=== PATIENT | female | born 1995 | race Two or more races ===

== ENCOUNTER 2016-07-23 13:01 | Emergency (ER) | payer BC ==
[2016-07-23 13:24] VITALS: BMI 18.6
[2016-07-23] MEDS ORDERED: ACETAMINOPHEN 500 MG TABLET (FP) PO ONE (15:24)
[2016-07-23] MEDS ORDERED: SODIUM CHLORIDE 1,000 ML IV STA (15:24)
[2016-07-23] MEDS ORDERED: ONDANSETRON 4 MG/2 ML VIAL IVPUSH ONE (15:24)
[2016-07-23] MEDS ORDERED: ONDANSETRON 4 MG/2 ML VIAL ONE (15:25)
[2016-07-23] MEDS ORDERED: ACETAMINOPHEN 325 MG TABLET (FP) ONE (15:25)
[2016-07-23 15:52] LABS: BASOPHIL 1.1 % (0-2.0); EOSINOPHIL 4.1 % (0-4.5); MCH 26.2 pg (25.7-33.7); MCHC 32.6 g/dl (32.0-36.0); MEAN CELL VOLUME 80.4 fl (80-96); MEAN PLT VOLUME 8.1 fl (7.5-11.1); NEUTROPHILS 60.2 % (42.8-82.8); PLATELET COUNT 309 K/MM3 (134-434); RDW 15.9 % (11.6-15.6); WHITE BLOOD COUNT 6.1 K/mm3 (4.0-10.0)
[2016-07-23 16:01] LABS: URINE APPEARANCE CLEAR; URINE BILIRUBIN NEGATIVE (NEGATIVE); URINE BLOOD NEGATIVE (NEGATIVE); URINE COLOR YELLOW; URINE GLUCOSE (UA) NEGATIVE (NEGATIVE); URINE KETONE NEGATIVE (NEGATIVE); URINE LEUK ESTERASE NEGATIVE (NEGATIVE); URINE NITRITE NEGATIVE (NEGATIVE); URINE PROTEIN NEGATIVE (NEGATIVE); URINE UROBILINOGEN NEGATIVE E.U./dl (0.2-1.0)
[2016-07-23 16:06] LABS: ALBUMIN 4.1 g/dl (3.4-5.0); ALK PHOS 70 U/L (45-117); ANION GAP 9 (8-16); BILIRUBIN,TOTAL 1.4 mg/dL (0.2-1.0); CALCIUM 9.2 mg/dL (8.5-10.1); CO2 27 mmol/L (21-32); CREATININE 0.5 mg/dL (0.55-1.02); GLUCOSE,RANDOM 85 mg/dL (74-106); MAGNESIUM 2.4 mg/dL (1.8-2.4); SGOT/AST 12 U/L (15-37); SGPT/ALT 15 U/L (12-78); TOT PROT 7.4 g/dl (6.4-8.2)
--- NOTE | 2016-07-23 16:49 | PDOC ---
History of Present Illness - General Chief Complaint: Pain, Acute Stated Complaint: VOMITING, PAIN/ SIDES, BACK Time Seen by Provider: 07/23/16 14:04 History Source: Patient Exam Limitations: No Limitations - History of Present Illness Travel History: No Initial Comments: 07/23/16 14:48 20-year-old female presents with lower abdominal pain radiating to her lower back for the past week now associated nausea and vomiting. Patient states did a home test a few weeks ago which was negative although her LMP was May 27. Patient denies any urinary complaints, vaginal complaints, discharge, abdominal distention or diarrhea. Timing/Duration: reports: constant Quality: reports: mild, cramping Abdominal Pain Onset Location: reports: suprapubic Pain Radiation: reports: back Activities at Onset: reports: none Aggravating Factors: improves with: None Alleviating Factors: improves with: None Past History - Past Medical History Allergies/Adverse Reactions: Allergies Allergy/AdvReac Type Severity Reaction Status Date / Time No Known Allergies Allergy Verified 07/23/16 13:21 Home Medications: Ambulatory Orders Ferrous Sulfate [Feosol] 1 tab PO BID 02/08/16 Ibuprofen [Motrin -] 600 mg PO QID #28 tablet 02/11/16 Asthma: No Cancer: No Cardiac Disorders: No COPD: No Diabetes: No HTN: No Suicide Attempt (Hx): No Seizures: No Thyroid Disease: No - Surgical History Abdominal Surgery: No Appendectomy: No - Reproductive History LMP Normal: No Is Patient Now?: No Expected Date of Delivery: 05/26/13 (#): 3 Para: 1 Cervical CA: No Dysfunctional Uterine Bleeding: No Ectopic : No Endometrial CA: No Polycystic Ovaries: No Therapeutic (s) & number: No Tubal Ligation: No Spontaneous : 1 - Immunization History Td Vaccination: Yes Immunization Up to Date: Yes - Psycho/Social/Smoking Cessation Hx Anxiety: No Suicidal Ideation: No Smoking Status: No Smoking History: Never smoked Years of Tobacco Use: 0 Have you smoked in the past 12 months: No Number of Cigarettes Smoked Daily: 0 Cigars Per Day: 0 Hx Alcohol Use: No Drug/Substance Use Hx: No Substance Use Type: None Hx Substance Use Treatment: No Patient Lives Alone: No Lives with/in: spouse/SO Review of Systems - Review of Systems Able to Perform ROS?: Yes Constitutional: No: Symptoms Reported HEENTM: No: Symptoms Reported Respiratory: No: Symptoms reported Cardiac (ROS): No: Symptoms Reported ABD/GI: Yes: Abdominal cramping : No: Symptoms Reported (she is ultrasound) Musculoskeletal: No: Symptoms Reported Integumentary: No: Symptoms Reported (I) Neurological: No: Symptoms reported Endocrine: No: Symptoms Reported *Physical Exam - Vital Signs Last Vital Signs Temp Pulse Resp BP Pulse Ox 98.4 F 83 20 103/55 99 07/23/16 13:21 07/23/16 13:21 07/23/16 13:21 07/23/16 13:21 07/23/16 13:21 - Physical Exam General Appearance: Yes: Nourished, Appropriately Dressed. No: Apparent Distress HEENT: negative: Pale Conjunctivae Neck: positive: Normal Thyroid, Supple Respiratory/Chest: positive: Lungs Clear, Normal Breath Sounds. negative: Respiratory Distress, Accessory Muscle Use Cardiovascular: positive: Regular Rhythm, Regular Rate. negative: Murmur Female Pelvic Exam: positive: normal external exam, normal adnexa. negative: cervical os closed, CMT, discharge, vaginal bleeding Gastrointestinal/Abdominal: positive: Soft, Tenderness (mid suprapubic) Musculoskeletal: negative: CVA Tenderness Extremity: positive: Normal Capillary Refill. negative: Pedal Edema Integumentary: positive: Normal Color, Warm, Moist Neurologic: positive: Motor Strength 5/5 (ambulatory) ED Treatment Course - LABORATORY CBC & Chemistry Diagram: 07/23/16 15:32 07/23/16 15:32 - ADDITIONAL ORDERS Additional order review: Laboratory Results 07/23/16 07/23/16 15:32 15:13 Sodium 137 Potassium 4.1 Chloride 101 Carbon Dioxide 27 Anion Gap 9 BUN 9 D Creatinine 0.5 L Creat Clearance w eGFR > 60 Random Glucose 85 Calcium 9.2 Magnesium 2.4 Total Bilirubin 1.4 H D AST 12 L ALT 15 Alkaline Phosphatase 70 Total Protein 7.4 Albumin 4.1 D Urine Color Yellow Urine Appearance Clear Urine pH 5.0 D Ur Specific [place] 1.031 Urine Protein Negative Urine Glucose (UA) Negative Urine Ketones Negative Urine Blood Negative Urine Nitrite Negative Urine Bilirubin Negative Urine Urobilinogen Negative Ur Leukocyte Esterase Negative Urine HCG, Qual Positive 07/23/16 15:32 RBC 4.63 MCV 80.4 MCHC 32.6 RDW 15.9 H MPV 8.1 Neutrophils % 60.2 Lymphocytes % 25.5 D Monocytes % 9.1 Eosinophils % 4.1 D Basophils % 1.1 - RADIOLOGY Radiology Studies Ordered: Category Date Time Status <14WKS US [US] Stat Ultrasound 07/23/16 16:34 Ordered - Medications Given in the ED: ED Medications Discontinued Medications Generic Name Dose Route Start Last Admin Trade Name Vivian PRN Reason Stop Dose Admin Acetaminophen 975 mg 07/23/16 15:24 07/23/16 15:32 Tylenol - PO 07/23/16 15:25 975 mg ONCE ONE Administration Sodium Chloride 1,000 mls @ 1,000 mls/hr 07/23/16 15:24 07/23/16 15:32 Normal Saline - IV 07/23/16 16:23 1,000 mls/hr ASDIR STA Administration Ondansetron HCl 4 mg 07/23/16 15:24 07/23/16 15:33 Zofran Injection IVPUSH 07/23/16 15:25 4 mg ONCE ONE Administration Medical Decision Making - Medical Decision Making 07/23/16 14:51 With complaints of lower abdominal pain and nausea with vomiting since yesterday. Patient states LMP was May 27 but did a home test 2 weeks ago which was negative. Patient had suprapubic pain on exam and concerning for ectopic versus versus UTI. Patient ordered for labs, IV fluids, Zofran, Tylenol and urine with urine . 07/23/16 16:52 Laboratory Tests 07/23/16 07/23/16 07/23/16 15:13 15:32 15:32 WBC 6.1 D Hgb 12.1 D Hct 37.2 D Neutrophils % 60.2 Sodium 137 Potassium 4.1 Chloride 101 Carbon Dioxide 27 Anion Gap 9 BUN 9 D Creatinine 0.5 L Creat Clearance w eGFR > 60 Random Glucose 85 Calcium 9.2 Magnesium 2.4 Total Bilirubin 1.4 H D AST 12 L ALT 15 Urine Ketones Negative Urine Nitrite Negative Urine HCG, Qual Positive Beta hCG added. Patient also ordered for pelvic ultrasound patient states feeling better after receiving the medication. 07/23/16 18:02 Ultrasound shows a single live intrauterine at 6 weeks 1 day with a heart rate of 1 30 bpm. Patient also has a graft of irregular fluid collection adjacent to the gestational sac consistent with subchorionic bleed. Patient will be given copy of ultrasound and told to follow-up with her COMPUTER DESIGNER Dr. Amy Yepez Laboratory Tests 07/23/16 16:35 Beta HCG, Quant 22994.2 *DC/Admit/Observation/Transfer Diagnosis at time of Disposition: Threatened - Discharge Dispostion Disposition: HOME Condition at time of disposition: Good - Referrals Referrals: Dutch Belle MD [Primary Care Provider] - - Patient Instructions Printed Discharge Instructions: DI for Threatened Additional Instructions: Although the ultrasound shows a live at 6 weeks 1 day with a good heart rate. There is also a small bleed next to the gestational sac that needs to be followed up by her COMPUTER DESIGNER. May take Tylenol for discomfort. Return to ED if symptoms worsen
[2016-07-23 18:18] VITALS: BP 107/72; PULSE 84; TEMP 98.2
== END 2016-07-23 18:18 | disposition home or self-care (01) ==
LOC: JER 13:01
PROC: 3E033GC Introduction of Other Therapeutic Substance into Peripheral Vein, Percutaneous Approach (ICD-10-PCS; principal; 2016-07-23)
DX: O20.0 Threatened abortion (principal); Z3A.01 Less than 8 weeks gestation of pregnancy
CPT/HCPCS: 36415; 76801-TC; 80053; 81003; 83735; 84702; 84703; 85025; 87086; 99285-25

== ENCOUNTER 2016-12-31 19:22 | Emergency (ER) | payer BC ==
[2016-12-31 19:31] VITALS: BP 105/59; BMI 18.6
[2016-12-31] MEDS ORDERED: IBUPROFEN 400 MG TABLET (FP) PO ONE (20:18)
--- NOTE | 2016-12-31 20:23 | PDOC ---
History of Present Illness - General Chief Complaint: Cold Symptoms Stated Complaint: COLD SYMPTOMS Time Seen by Provider: 12/31/16 19:42 History Source: Patient - History of Present Illness Timing/Duration: reports: yesterday Associated Symptoms: reports: fever/chills, muscle aches. denies: cough, earache, facial pain, lightheadedness, nasal congestion, nasal drainage, shortness of breath, sore throat, wheezing Past History - Past Medical History Allergies/Adverse Reactions: Allergies Allergy/AdvReac Type Severity Reaction Status Date / Time No Known Allergies Allergy Verified 12/31/16 19:27 Home Medications: Ambulatory Orders Ferrous Sulfate [Feosol] 1 tab PO BID 02/08/16 Ibuprofen [Motrin -] 600 mg PO QID #28 tablet 02/11/16 Cephalexin Monohydrate [Keflex -] 500 mg PO Q6H #20 capsule 08/04/16 Ondansetron [Zofran Odt -] 4 mg SL TID PRN #12 od.tablet 08/04/16 Asthma: No Cancer: No Cardiac Disorders: No COPD: No Diabetes: No HTN: No Suicide Attempt (Hx): No Seizures: No Thyroid Disease: No Other medical history: Pt denies - Surgical History Abdominal Surgery: No Appendectomy: No - Reproductive History Expected Date of Delivery: 05/26/13 (#): 3 Para: 1 Cervical CA: No Dysfunctional Uterine Bleeding: No Ectopic : No Endometrial CA: No Polycystic Ovaries: No Therapeutic (s) & number: No Tubal Ligation: No Spontaneous : 1 - Immunization History Td Vaccination: Yes Immunization Up to Date: Yes - Psycho/Social/Smoking Cessation Hx Anxiety: No Suicidal Ideation: No Smoking Status: No Smoking History: Never smoked Years of Tobacco Use: 0 Have you smoked in the past 12 months: No Number of Cigarettes Smoked Daily: 0 Cigars Per Day: 0 Information on smoking cessation initiated: No Hx Alcohol Use: No Drug/Substance Use Hx: No Substance Use Type: None Hx Substance Use Treatment: No Review of Systems - Review of Systems Constitutional: Yes: Fever, Malaise, Weakness Respiratory: No: Cough, Shortness of Breath Cardiac (ROS): No: Chest Pain ABD/GI: No: Diarrhea, Nausea, Vomiting : No: Dysuria Musculoskeletal: No: Neck Pain Neurological: No: Headache, Dizziness *Physical Exam - Vital Signs Last Vital Signs Temp Pulse Resp BP Pulse Ox 99.0 F 108 H 20 105/59 100 12/31/16 19:27 12/31/16 19:27 12/31/16 19:27 12/31/16 19:27 12/31/16 19:27 - Physical Exam Comments: 12/31/16 20:22 appears ill General Appearance: Yes: Appropriately Dressed HEENT: positive: Normal ENT Inspection, Normal Voice. negative: Scleral Icterus (R), Scleral Icterus (L) Neck: positive: Supple. negative: Lymphadenopathy (R), Lymphadenopathy (L), Rigidity Respiratory/Chest: positive: Lungs Clear, Normal Breath Sounds. negative: Respiratory Distress Cardiovascular: positive: S1, S2, Tachycardia Gastrointestinal/Abdominal: positive: Soft. negative: Tender Integumentary: positive: Dry, Warm Neurologic: positive: Fully Oriented, Alert, Normal Mood/Affect Medical Decision Making - Medical Decision Making 12/31/16 20:20 21-year-old female, denies any past medical history here with sudden onset malaise with body aches, subjective fever and chills since yesterday. Denies headache, earache, sore throat, cough, neck pain, nausea, vomiting, diarrhea or rash. No sick contacts, recent travel or recent bites. Patient appears uncomfortable with low-grade fever and tachycardia in ED with unremarkable exam otherwise. Most likely viral syndrome. Will administer supportive tx in ED and reassess 12/31/16 21:37 Flu neg. Sxs improved w/ meds in ED. Will discharge w/ supportive tx 12/31/16 21:38 12/31/16 22:00 *DC/Admit/Observation/Transfer Diagnosis at time of Disposition: Viral syndrome - Discharge Dispostion Disposition: HOME Condition at time of disposition: Improved - Patient Instructions Printed Discharge Instructions: DI for Viral Syndrome Additional Instructions: Rest, take Motrin or Tylenol for pain and/or fever and maintain adequate hydration - Post Discharge Activity Work/School Note: Back to Work
[2016-12-31 21:42] VITALS: PULSE 98; TEMP 98.4
== END 2016-12-31 21:42 | disposition home or self-care (01) ==
LOC: JERFT 19:22
DX: B34.9 Viral infection, unspecified (principal)
CPT/HCPCS: 84703; 87804; 99281-25

== ENCOUNTER 2017-03-14 10:26 | Emergency (ER) | payer BC ==
[2017-03-14 10:36] VITALS: BP 105/70; PULSE 93; TEMP 99.4; BMI 18.4
[2017-03-14 11:03] LABS: URINE APPEARANCE SLCLOUDY; URINE BILIRUBIN NEGATIVE (NEGATIVE); URINE BLOOD 2+ (NEGATIVE); URINE COLOR YELLOW; URINE GLUCOSE (UA) NEGATIVE (NEGATIVE); URINE KETONE NEGATIVE (NEGATIVE); URINE NITRITE NEGATIVE (NEGATIVE); URINE PROTEIN NEGATIVE (NEGATIVE); URINE UROBILINOGEN NEGATIVE mg/dL (0.2-1.0)
[2017-03-14 11:06] LABS: URINE LEUK ESTERASE 1+ (NEGATIVE)
[2017-03-14 11:07] LABS: URINE MUCUS RARE; URINE RBC 1 /hpf (0-3); URINE WBC 1 /hpf (3-5)
[2017-03-14] MEDS ORDERED: AZITHROMYCIN 1 GM PACKET PO ONE (11:07)
[2017-03-14] MEDS ORDERED: LIDOCAINE HCL 1%, 10 MG/ML (20ML VIAL) ONE (11:11)
[2017-03-14] MEDS ORDERED: AZITHROMYCIN 1 GM PACKET ONE (11:11)
--- NOTE | 2017-03-14 11:16 | PDOC ---
History of Present Illness - General Chief Complaint: Vaginal Sxs Stated Complaint: PAIN Time Seen by Provider: 03/14/17 10:52 History Source: Patient Exam Limitations: No Limitations - History of Present Illness Travel History: No Initial Comments: 03/14/17 11:17 21 yr female with c/o vaginal itch/irritation for 2 weeks. Pt was dx with yeast infection and ghonorrohea 2 weeks ago did not complete the antibitoics , missed 3 doses. Pt states she continue to have irritation. no discharge. Pt has no abd pain no fever or chills is on depo provera. Last HIV test 02/10 was negative. Past History - Past Medical History Allergies/Adverse Reactions: Allergies Allergy/AdvReac Type Severity Reaction Status Date / Time No Known Allergies Allergy Verified 03/14/17 10:32 Home Medications: Ambulatory Orders NK [No Known Home Medication] 03/14/17 Asthma: No Cancer: No Cardiac Disorders: No COPD: No Diabetes: No HTN: No Suicide Attempt (Hx): No Seizures: No Thyroid Disease: No Other medical history: none - Surgical History Abdominal Surgery: No Appendectomy: No - Reproductive History Expected Date of Delivery: 05/26/13 (#): 3 Para: 1 Cervical CA: No Dysfunctional Uterine Bleeding: No Ectopic : No Endometrial CA: No Polycystic Ovaries: No Therapeutic (s) & number: No Tubal Ligation: No Spontaneous : 1 - Immunization History Td Vaccination: Yes Immunization Up to Date: Yes - Psycho/Social/Smoking Cessation Hx Anxiety: No Suicidal Ideation: No Smoking Status: No Smoking History: Never smoked Years of Tobacco Use: 0 Have you smoked in the past 12 months: No Number of Cigarettes Smoked Daily: 0 Cigars Per Day: 0 Information on smoking cessation initiated: No Hx Alcohol Use: No Drug/Substance Use Hx: No Substance Use Type: None Hx Substance Use Treatment: No Abd/GI Specific PMHX - Complaint Specific PMHX Colitis: No Diverticulitis: No Gall Bladder Disease: No GERD: No Hepatitis: No Irritable Bowel Synd (IBS): No Pancreatitis: No GI Ulcer Disease: No Review of Systems - Review of Systems Able to Perform ROS?: Yes Is the patient limited Macedonian proficient: No Constitutional: No: Symptoms Reported HEENTM: No: Symptoms Reported Respiratory: No: Symptoms reported Cardiac (ROS): No: Symptoms Reported ABD/GI: No: Symptoms Reported : Yes: Symptoms Reported *Physical Exam - Vital Signs Last Vital Signs Temp Pulse Resp BP Pulse Ox 99.4 F 93 H 18 105/70 100 03/14/17 10:33 03/14/17 10:33 03/14/17 10:33 03/14/17 10:33 03/14/17 10:33 - Physical Exam General Appearance: Yes: Nourished, Appropriately Dressed HEENT: positive: EOMI, NASEEM Neck: positive: Supple Respiratory/Chest: positive: Lungs Clear, Normal Breath Sounds Cardiovascular: positive: Regular Rhythm, Regular Rate Female Pelvic Exam: positive: normal external exam, normal adnexa. negative: cervical os closed, CMT, discharge Gastrointestinal/Abdominal: positive: Normal Bowel Sounds, Soft. negative: Tender Musculoskeletal: positive: Normal Inspection Extremity: positive: Normal Capillary Refill, Normal Inspection, Normal Range of Motion Integumentary: positive: Normal Color, Dry, Warm Neurologic: positive: Fully Oriented, Alert, Normal Mood/Affect, Normal Response , Motor Strength / ED Treatment Course - ADDITIONAL ORDERS Additional order review: Laboratory Results 03/14/17 10:53 Urine Color Yellow Urine Appearance Slcloudy Urine pH 5.0 D Urine Protein Negative Urine Glucose (UA) Negative Urine Ketones Negative Urine Blood 2+ H Urine Nitrite Negative Urine Bilirubin Negative Urine Urobilinogen Negative Urine HCG, Qual Negative Medical Decision Making - Medical Decision Making 03/14/17 11:19 cc: vaginal irritation, itching exposed to GC not fully treated will treat today for GC and chlamydia no evidence of yeast no evidence of BV or trich, as pt has no discharge no foul odor. pt refused HIV testing today. will follow with her GRAPHIC DESIGN TEACHER . 03/14/17 11:21 *DC/Admit/Observation/Transfer Diagnosis at time of Disposition: STD exposure, Unprotected sexual intercourse - Discharge Dispostion Disposition: HOME Condition at time of disposition: Good - Patient Instructions Additional Instructions: always use condoms to protect you from STD's follow with your supervisor enrobing in one month for follow up no sexual activity for one week and conform your partner has been treated as well
== END 2017-03-14 11:52 | disposition home or self-care (01) ==
LOC: JERFT 10:26
DX: Z20.2 Contact with and (suspected) exposure to infections with a predominantly sexual mode of transmission (principal)
CPT/HCPCS: 36415; 81003; 81015; 84703; 87491; 87591; 99281-25

== ENCOUNTER 2017-05-24 00:37 | Emergency (ER) | payer BC ==
[2017-05-24 00:51] VITALS: BP 107/57; PULSE 75; TEMP 98.6; BMI 18.8
--- NOTE | 2017-05-24 01:18 | PDOC ---
History of Present Illness - General Chief Complaint: Wound Stated Complaint: ORAL PAIN Time Seen by Provider: 05/24/17 00:51 History Source: Patient Exam Limitations: No Limitations - History of Present Illness Initial Comments: This is a 21 YOF with h/o dental caries and root canal procedures who presents with right upper dental pain and swelling worsening for the past 3 days. She currently has 6/10 pain radiating to the right jaw and right ear. She has rotted teeth to the area where she had root canals about 2 years ago, but notes the crowns have been falling off for the past 7 months. She notes blood drainage and a strange taste in her mouth for the past 3 days. She has a regular dentist but has not seen them since the pain started d/t the holiday. She additionally notes recent cough, sore throat, and runny nose. She denies fever, chills, SOB, chest pain, or other symptoms. She has been using the max dose of extra-strength Tylenol, Listerine, and Abesol for the symptoms. Past History - Past Medical History Allergies/Adverse Reactions: Allergies Allergy/AdvReac Type Severity Reaction Status Date / Time No Known Allergies Allergy Verified 05/24/17 00:48 Home Medications: Ambulatory Orders Clindamycin [Cleocin -] 450 mg PO Q8H #60 capsule 05/24/17 Asthma: No Cancer: No Cardiac Disorders: No COPD: No Diabetes: No HTN: No Seizures: No Thyroid Disease: No - Surgical History Abdominal Surgery: No Appendectomy: No - Reproductive History Expected Date of Delivery: 05/26/13 (#): 3 Para: 1 Cervical CA: No Dysfunctional Uterine Bleeding: No Ectopic : No Endometrial CA: No Polycystic Ovaries: No Therapeutic (s) & number: No Tubal Ligation: No Spontaneous : 1 - Immunization History Td Vaccination: Yes Immunization Up to Date: Yes - Suicide/Smoking/Psychosocial Hx Smoking Status: No Smoking History: Never smoked Years of Tobacco Use: 0 Have you smoked in the past 12 months: No Number of Cigarettes Smoked Daily: 0 Cigars Per Day: 0 Information on smoking cessation initiated: No Hx Alcohol Use: No Drug/Substance Use Hx: No Substance Use Type: None Hx Substance Use Treatment: No Review of Systems - Review of Systems Constitutional: No: Chills, Fever, Unexplained wgt Loss HEENTM: Yes: Nose Congestion, Throat Pain, Mouth Pain, Dental Problems, Other ( gum swelling) Respiratory: Yes: Cough. No: Shortness of Breath Cardiac (ROS): No: Chest Pain, Palpitations ABD/GI: No: Constipated, Diarrhea, Nausea, Vomiting : No: Burning, Dysuria Musculoskeletal: No: Back Pain, Neck Pain Integumentary: No: Bruising, Rash Neurological: No: Headache, Numbness, Tingling, Weakness, Dizziness Endocrine: No: Unexplained Weight Gain, Unexplained Weight Loss *Physical Exam - Vital Signs Last Vital Signs Temp Pulse Resp BP Pulse Ox 98.6 F 75 20 107/57 99 05/24/17 00:48 05/24/17 00:48 05/24/17 00:48 05/24/17 00:48 05/24/17 00:48 - Physical Exam General Appearance: Yes: Nourished, Appropriately Dressed, Mild Distress, Other (young woman sitting on hospital stretcher, answering questions appropriately, normal phonation except soft-spoken) HEENT: positive: EOMI, Hearing Grossly Normal, Other (no trismus, no drooling, teeth #2,3,4 with severe decay and loss of crowns from stated prior root canals , underlying gingival swelling to exterior gingiva, swelling to exterior cheek is mild but noticeable, no swelling to floor of mouth, no lymphadenopathy). negative: Scleral Icterus (R), Scleral Icterus (L), Excessive drooling Neck: positive: Trachea midline, Supple. negative: Tender, Rigid, Stridor, Lymphadenopathy (R), Lymphadenopathy (L) Respiratory/Chest: positive: Lungs Clear, Normal Breath Sounds. negative: Respiratory Distress, Crackles, Rhonchi, Stridor, Wheezing Cardiovascular: positive: Regular Rhythm, Regular Rate. negative: Murmur Gastrointestinal/Abdominal: positive: Normal Bowel Sounds, Soft. negative: Tender, Organomegaly, Pulsatile Mass, Guarding Musculoskeletal: positive: Normal Inspection. negative: Decreased Range of Motion, Vertebral Tenderness Extremity: positive: Normal Capillary Refill, Normal Inspection, Normal Range of Motion. negative: Tender, Cyanosis Integumentary: positive: Normal Color, Dry, Warm. negative: Erythema, Rash, Bruising Neurologic: positive: manager technical services II-XII NML intact (grossly), Fully Oriented, Alert, Normal Mood/Affect, Normal Response, Motor Strength 10/30 ED Treatment Course - LABORATORY CBC & Chemistry Diagram: 05/24/17 01:45 05/24/17 01:45 Medical Decision Making - Medical Decision Making 21 YOF with h/o dental caries, decay, and root canals p/w root canal malfunction and gingival pain/swelling. On exam she is in mild distress initially, visible gingival swelling and severe dental decay #2,3,4. VS within normal limits, no e/o Fabio's angina, no lymphadenopathy, no trismus , no drooling. No posterior pharyngeal erythema or tonsillar swelling/exudates. DDX IBNLT dental abscess, cellulitis, dental fracture, unlikely Fabio's angina or parotitis or intracranial infection. Ordered is CBCD, BMP, serum preg, CT head, 2 mg morphine IV, IVF, IV Clindamycin. 05/24/17 04:[address] unremarkable. Patient is given a posterior superior alveolar nerve block with complete relief of pain. She is appropriate for discharge home and plans to follow up with dental clinic later this AM. Return precautions are discussed. *DC/Admit/Observation/Transfer Diagnosis at time of Disposition: Dental infection - Discharge Dispostion Disposition: HOME Condition at time of disposition: Stable Admit: No - Prescriptions Prescriptions: Clindamycin [Cleocin -] 450 mg PO Q8H #60 capsule - Referrals Referrals: Dutch Belle MD [Primary Care Provider] - - Patient Instructions Additional Instructions: You were seen in the ER for a dental infection. We did some basic lab work and it was all normal. We also did a head CT to make sure the infection had not spread, and the results are not concerning. We gave you pain medicine and a dental nerve block, and we also gave you IV antibiotic while you were here. The dental block will wear off in 6-8 hours (about 10 am) so please go to the walk- in dental clinic this morning or see your regular dentist this morning. Return to the ER for any new or worsening symptoms like fever, inability to open the mouth, inability to swallow saliva, severe pain you cannot control, severe headache, or other symptoms. - Post Discharge Activity
[2017-05-24] MEDS ORDERED: BUPIVACAINE HCL/PF (5 MG/ML) 30 ML VIAL IJ ONE (01:21)
[2017-05-24] MEDS ORDERED: BUPIVACAINE HCL/PF 0.5% (5MG/ML) 10 ML VIAL ONE (01:23)
[2017-05-24] MEDS ORDERED: morphine CARPU-JECT 2 MG/1 ML DISP.SYRIN IVPUSH ONE (01:34)
[2017-05-24] MEDS ORDERED: SODIUM CHLORIDE 0.9% 1000 ML INFUS.BAG IV ONE (01:34)
[2017-05-24] MEDS ORDERED: morphine SULFATE 4 MG/ML VIAL ONE (01:38)
[2017-05-24 01:52] LABS: BASOPHIL 0.9 % (0-2.0); EOSINOPHIL 3.5 % (0-4.5); MCH 26.3 pg (25.7-33.7); MCHC 32.5 g/dl (32.0-36.0); MEAN PLT VOLUME 8.6 fl (7.5-11.1); NEUTROPHILS 66.2 % (42.8-82.8); PLATELET COUNT 303 K/MM3 (134-434); RDW 16.5 % (11.6-15.6); WHITE BLOOD COUNT 7.3 K/mm3 (4.0-10.0)
[2017-05-24 02:06] LABS: INR 1.18 (0.82-1.09); PROTHROMBIN TIME (PATIENT) 13.3 SEC (9.98-11.88)
[2017-05-24 02:18] LABS: ANION GAP 9 (8-16); CALCIUM 9.1 mg/dL (8.5-10.1); CO2 29 mmol/L (21-32); CREATININE 0.7 mg/dL (0.55-1.02); GLUCOSE,RANDOM 94 mg/dL (74-106)
[2017-05-24] MEDS ORDERED: CLINDAMYCIN 600MG PREMIX IVPB 600 MG/50 ML BAG IVPB ONE ×2 (02:25→02:47)
[2017-05-24] MEDS ORDERED: KETOROLAC TROMETHAMINE 30 MG/1 ML VIAL IVPUSH ONE (03:26)
--- NOTE | 2017-05-24 03:55 | PDOC ---
Attending Attestation - Resident Resident Name: Cindy Lane - HPI HPI: 05/24/17 03:52 Pt comes with caps that fell out of her root canal; now with maxiallary molar 1/ 2 swelling and pain. No fevers - Physicial Exam PE: 05/24/17 03:52 Agree with resident. Afebrile; vss - Medical Decision Making 05/24/17 03:[address] normal. PSA injection with bupivicaine; also analgesics parenterally; clinda IV 1 dose; home with clinda Labs are normal. No elevated WBC. 05/24/17 03:55 Patient Name: TOM HERNANDEZ THIS IS A PRELIMINARY REPORT FROM IMAGING CASTING ROOM OPERATOR DATE OF SERVICE: 2017-05-24 03:03:29 IMAGES: [id number] EXAM: CT HEAD with and without contrast HISTORY: Dental infection. Rule out intracranial infection. COMPARISON: None. FINDINGS: The ventricular system is midline and nondilated. The sulcal pattern is normal for the patient's age. There is no bleed, mass, extra-axial fluid collection or mass effect. No skull fracture or skull lesion is identified. The visualized paranasal sinuses and mastoid air cells are clear. There are no foci of abnormal enhancement. IMPRESSION: Normal exam
== END 2017-05-24 04:30 | disposition home or self-care (01) ==
LOC: JER 00:37
PROC: 3E03329 Introduction of Other Anti-infective into Peripheral Vein, Percutaneous Approach (ICD-10-PCS; principal; 2017-05-24)
PROC: 3E033NZ Introduction of Analgesics, Hypnotics, Sedatives into Peripheral Vein, Percutaneous Approach (ICD-10-PCS; 2017-05-24)
PROC: 3E0333Z Introduction of Anti-inflammatory into Peripheral Vein, Percutaneous Approach (ICD-10-PCS; 2017-05-24)
PROC: 3E0D3BZ Introduction of Anesthetic Agent into Mouth and Pharynx, Percutaneous Approach (ICD-10-PCS; 2017-05-24)
DX: K02.61 Dental caries on smooth surface limited to enamel (principal); K06.8 Other specified disorders of gingiva and edentulous alveolar ridge; K04.7 Periapical abscess without sinus
CPT/HCPCS: 36415; 70470-TC; 80048; 84703; 85025; 85610; 99281-25

== ENCOUNTER 2017-07-19 21:20 | Emergency (ER) | payer BC ==
[2017-07-19 22:39] VITALS: BP 101/69; TEMP 100.5; BMI 18.4
--- NOTE | 2017-07-19 23:51 | PDOC ---
History of Present Illness - General Chief Complaint: Cold Symptoms Stated Complaint: COLD SYMPTOMS Time Seen by Provider: 07/19/17 23:42 History Source: Patient Exam Limitations: No Limitations - History of Present Illness Initial Comments: 07/19/17 23:47 21-year-old female with no medical history presents to the emergency department complaining of a low-grade fever/Tmax 100.5, nonproductive cough 3 days without chills, nausea/vomiting, headache, dizziness, lightheadedness, facial pains, nasal congestion, rhinorrhea, earaches, sore throat, neck pain/stiffness , back pains, chest pain, shortness of breath, abdominal pains, flank pains, urinary symptoms. Patient states she's been taking [id number] cough medication with minimal relief. Timing/Duration: reports: other (x3d) Associated Symptoms: reports: cough, fever/chills (100.5 tmax). denies: nasal congestion, sore throat Past History - Past Medical History Allergies/Adverse Reactions: Allergies Allergy/AdvReac Type Severity Reaction Status Date / Time No Known Allergies Allergy Verified 07/19/17 22:39 Home Medications: Ambulatory Orders NK [No Known Home Medication] 07/19/17 Asthma: No Cancer: No Cardiac Disorders: No COPD: No Diabetes: No HTN: No Seizures: No Thyroid Disease: No - Surgical History Abdominal Surgery: No Appendectomy: No - Reproductive History Expected Date of Delivery: 05/26/13 (#): 3 Para: 1 Cervical CA: No Dysfunctional Uterine Bleeding: No Ectopic : No Endometrial CA: No Polycystic Ovaries: No Therapeutic (s) & number: No Tubal Ligation: No Spontaneous : 1 - Immunization History Td Vaccination: Yes Immunization Up to Date: Yes - Suicide/Smoking/Psychosocial Hx Smoking Status: No Smoking History: Never smoked Years of Tobacco Use: 0 Have you smoked in the past 12 months: No Number of Cigarettes Smoked Daily: 0 Cigars Per Day: 0 Information on smoking cessation initiated: No Hx Alcohol Use: No Drug/Substance Use Hx: No Substance Use Type: None Hx Substance Use Treatment: No Review of Systems - Review of Systems Able to Perform ROS?: Yes Comments:: 07/19/17 23:48 CONSTITUTIONAL: +fever Absent: chills, diaphoresis, generalized weakness, malaise, loss of appetite HEENT: Absent: rhinorrhea, nasal congestion, throat pain, throat swelling, difficulty swallowing, mouth swelling, ear pain, eye pain, visual Changes CARDIOVASCULAR: Absent: chest pain, loss of consciousness, palpitations, irregular heart rate, peripheral edema RESPIRATORY: +cough Absent: shortness of breath, dyspnea with exertion, orthopnea, wheezing, stridor, hemoptysis GASTROINTESTINAL: Absent: abdominal pain, abdominal distension, nausea, vomiting, diarrhea, constipation, melena, hematochezia GENITOURINARY: Absent: dysuria, frequency, urgency, hesitancy, hematuria, flank pain, genital pain MUSCULOSKELETAL: Absent: myalgia, arthralgia, joint swelling SKIN: Absent: rash, itching, pallor HEMATOLOGIC/IMMUNOLOGIC: Absent: easy bleeding, easy bruising, lymphadenopathy, frequent infections ENDOCRINE: Absent: unexplained weight gain, unexplained weight loss, heat intolerance, cold intolerance Is the patient limited Yoruba proficient: No *Physical Exam - Vital Signs Last Vital Signs Temp Pulse Resp BP Pulse Ox 100.5 F H 132 H 20 101/69 99 07/19/17 22:37 07/19/17 22:37 07/19/17 22:37 07/19/17 22:37 07/19/17 22:37 - Physical Exam Comments: 07/19/17 23:48 GENERAL: Well developed, well nourished. Awake and alert. No acute distress. HEENT: Normocephalic, atraumatic. PERRLA, EOMI. No conjunctival pallor. Sclera are non- icteric. Moist mucous membranes. Oropharynx is clear. NECK: Supple. Full ROM. No JVD. Carotid pulses 2+ and symmetric, without bruits. No thyromegaly. No lymphadenopathy. CARDIOVASCULAR: Regular rate and rhythm. No murmurs, rubs, or gallops. Distal pulses are 2+ and symmetric. PULMONARY: No evidence of respiratory distress. Lungs clear to auscultation bilaterally. No wheezing, rales or rhonchi. ABDOMINAL: Soft. Non-tender. Non-distended. No rebound or guarding. No organomegaly. Normoactive bowel sounds. MUSCULOSKELETAL Normal range of motion at all joints. No bony deformities or tenderness. No CVA tenderness. EXTREMITIES: No cyanosis. No clubbing. No edema. No calf tenderness. SKIN: Warm and dry. Normal capillary refill. No rashes. No jaundice. NEUROLOGICAL: Alert, awake, appropriate. Cranial nerves 2-12 intact. No deficits to light touch and temperature in face, upper extremities and lower extremities. No motor deficits in the in face, upper extremities and lower extremities. Normoreflexic in the upper and lower extremities. Normal speech. Toes are down- going bilaterally. Gait is normal without ataxia. PSYCHIATRIC: Cooperative. Good eye contact. Appropriate mood and affect. Progress Note - Progress Note Progress Note: Pt refuses cxr *DC/Admit/Observation/Transfer Diagnosis at time of Disposition: Acute bronchitis Qualifiers: Bronchitis organism: unspecified organism Qualified Code(s): J20.9 - Acute bronchitis, unspecified - Discharge Dispostion Disposition: HOME Condition at time of disposition: Stable Admit: No - Referrals Referrals: Dutch Belle MD [Primary Care Provider] - - Patient Instructions Printed Discharge Instructions: DI for Acute Bronchitis Additional Instructions: Rest Tylenol alternating with Motrin as needed for fever Increase fluids Follow up with your physician within 48 hours Return to the ER for severe/persistent/worsening symptoms - Post Discharge Activity
[2017-07-19 23:56] VITALS: PULSE 84
[2017-07-19] MEDS ORDERED: ACETAMINOPHEN 325 MG TABLET (FP) PO ONE (23:59)
[2017-07-20] MEDS ORDERED: ACETAMINOPHEN 325 MG TABLET (FP) ONE (00:01)
== END 2017-07-19 23:56 | disposition home or self-care (01) ==
LOC: JERFT 21:20
DX: R11.11 Vomiting without nausea (principal); J20.9 Acute bronchitis, unspecified; M79.1 Myalgia
CPT/HCPCS: 99281-25

== ENCOUNTER 2017-08-08 11:02 | Emergency (ER) | payer BC ==
[2017-08-08 11:11] VITALS: BP 109/61; PULSE 89; TEMP 97.9; BMI 18.6
[2017-08-08 11:48] LABS: URINE APPEARANCE CLEAR; URINE BILIRUBIN NEGATIVE (NEGATIVE); URINE BLOOD 1+ (NEGATIVE); URINE COLOR YELLOW; URINE GLUCOSE (UA) NEGATIVE (NEGATIVE); URINE KETONE NEGATIVE (NEGATIVE); URINE LEUK ESTERASE NEGATIVE (NEGATIVE); URINE NITRITE NEGATIVE (NEGATIVE); URINE PROTEIN NEGATIVE (NEGATIVE); URINE UROBILINOGEN NEGATIVE mg/dL (0.2-1.0)
[2017-08-08 11:49] LABS: HCG,QUALITATIVE URINE POSITIVE
[2017-08-08 11:54] LABS: EPI CELLS RARE /HPF (FEW); URINE MUCUS FEW
--- NOTE | 2017-08-08 12:19 | PDOC ---
History of Present Illness - General Chief Complaint: ,Possible Stated Complaint: ABD PAIN Time Seen by Provider: 08/08/17 12:01 History Source: Patient Exam Limitations: No Limitations - History of Present Illness Initial Comments: 08/08/17 12:41 Patient is a 21-year-old female with no past medical history, department today she may be . Patient states that she took 2 tests at home, one was negative and one was positive. She presents today for new test. LMP was 06/29/17. Patient admits to itching during urination and lower abdominal cramping. Denies vaginal bleeding, n/v/d, hematuria. Past History - Past Medical History Allergies/Adverse Reactions: Allergies Allergy/AdvReac Type Severity Reaction Status Date / Time No Known Allergies Allergy Verified 08/08/17 11:11 Home Medications: Ambulatory Orders Cephalexin Monohydrate [Keflex -] 500 mg PO BID #14 capsule 08/08/17 Asthma: No Cancer: No Cardiac Disorders: No COPD: No Diabetes: No HTN: No Seizures: No Thyroid Disease: No - Surgical History Abdominal Surgery: No Appendectomy: No - Reproductive History Expected Date of Delivery: 05/26/13 (#): 3 Para: 1 Cervical CA: No Dysfunctional Uterine Bleeding: No Ectopic : No Endometrial CA: No Polycystic Ovaries: No Therapeutic (s) & number: No Tubal Ligation: No Spontaneous : 1 - Immunization History Td Vaccination: Yes Immunization Up to Date: Yes - Suicide/Smoking/Psychosocial Hx Smoking Status: No Smoking History: Never smoked Years of Tobacco Use: 0 Have you smoked in the past 12 months: No Number of Cigarettes Smoked Daily: 0 Cigars Per Day: 0 Hx Alcohol Use: No Drug/Substance Use Hx: No Substance Use Type: None Hx Substance Use Treatment: No *Physical Exam - Vital Signs Last Vital Signs Temp Pulse Resp BP Pulse Ox 97.9 F 89 18 109/61 98 08/08/17 11:09 08/08/17 11:09 08/08/17 11:09 08/08/17 11:09 08/08/17 11:09 ED Treatment Course - ADDITIONAL ORDERS Additional order review: Laboratory Results 08/08/17 11:36 Urine Color Yellow Urine Appearance Clear Urine pH 5.0 Ur Specific [place] 1.026 Urine Protein Negative Urine Glucose (UA) Negative Urine Ketones Negative Urine Blood 1+ H Urine Nitrite Negative Urine Bilirubin Negative Urine Urobilinogen Negative Ur Leukocyte Esterase Negative Urine WBC (Auto) 2 Urine RBC (Auto) 1 Ur Epithelial Cells Rare Urine Mucus Few Urine HCG, Qual Positive *DC/Admit/Observation/Transfer Diagnosis at time of Disposition: Qualifiers: Weeks of gestation: less than 8 weeks Qualified Code(s): Z3A.01 - Less than 8 weeks gestation of UTI (urinary tract infection) Qualifiers: Urinary tract infection type: acute cystitis Hematuria presence: with hematuria Qualified Code(s): N30.01 - Acute cystitis with hematuria - Discharge Dispostion Disposition: HOME Condition at time of disposition: Stable Admit: No - Prescriptions Prescriptions: Cephalexin Monohydrate [Keflex -] 500 mg PO BID #14 capsule - Referrals Referrals: Dutch Belle MD [Primary Care Provider] - - Patient Instructions Printed Discharge Instructions: DI for Urinary Tract Infection (UTI) Additional Instructions: Your test today was positive. Given your last menstrual, you are most likely 3 weeks . Please follow-up with your [facility] within the next week. You also urinary tract infection. Please take the antibiotics as prescribed. Please drink plenty of water. If you have any pain you may take Tylenol. Return to the emergency department if you have worsening abdominal pain specially located on one side, vaginal bleeding, or any changes in your symptoms. - Post Discharge Activity
== END 2017-08-08 12:42 | disposition home or self-care (01) ==
LOC: JERFT 11:02 → JER 11:02 → JERFT 12:42
DX: O26.891 Other specified pregnancy related conditions, first trimester (principal); O23.11 Infections of bladder in pregnancy, first trimester; N30.01 Acute cystitis with hematuria; Z3A.01 Less than 8 weeks gestation of pregnancy
CPT/HCPCS: 81003; 81015; 84703; 87086; 99281-25

== ENCOUNTER 2017-09-05 00:41 | Emergency (ER) | payer BC ==
[2017-09-05 01:19] VITALS: BP 96/62; PULSE 98; TEMP 97.6; BMI 18.6
--- NOTE | 2017-09-05 01:22 | PDOC ---
History of Present Illness - General History Source: Patient Exam Limitations: No Limitations - History of Present Illness Initial Comments: 09/05/17 01:44 The patient is a 21 year old female A1, with no significant past medical history, who presents to the emergency department with, three days of nausea and emesis. The patient describes her emesis as bloody. She reports she is not able to hold any food down. Secondary to her symptoms, she reports a burning sensation in her stomach. She reports the people around her to smoke marijuana which worsens her nausea. She denies taking anything for her pain. She denies recent fevers, chills, headache or dizziness. She denies recent diarrhea or constipation. She denies recent dysuria, frequency, urgency or hematuria. She denies recent chest pain or shortness of breath. Allergies: NKA Primary Care Physician: Dr. Dutch Belle <Jonathan Delgadillo - Last Filed: 09/05/17 03:06> <Fouzia Gleason - Last Filed: 09/05/17 20:46> - General Chief Complaint: Nausea/Vomiting Stated Complaint: 8 WEEKS , VOMITING BLOOD Time Seen by Provider: 09/05/17 01:15 Past History <Jonathan Delgadillo - Last Filed: 09/05/17 03:06> - Past Medical History Asthma: No Cancer: No Cardiac Disorders: No COPD: No Diabetes: No HTN: No Seizures: No Thyroid Disease: No Other medical history: Pt denies - Surgical History Abdominal Surgery: No Appendectomy: No - Reproductive History Expected Date of Delivery: 05/26/13 (#): 3 Para: 1 Cervical CA: No Dysfunctional Uterine Bleeding: No Ectopic : No Endometrial CA: No Polycystic Ovaries: No Therapeutic (s) & number: No Tubal Ligation: No Spontaneous : 1 - Immunization History Td Vaccination: Yes Immunization Up to Date: Yes - Suicide/Smoking/Psychosocial Hx Smoking Status: No Smoking History: Never smoked Years of Tobacco Use: 0 Have you smoked in the past 12 months: No Number of Cigarettes Smoked Daily: 0 Cigars Per Day: 0 Information on smoking cessation initiated: No Hx Alcohol Use: No Drug/Substance Use Hx: No Substance Use Type: None Hx Substance Use Treatment: No <Fouzia Gleason - Last Filed: 09/05/17 20:46> - Past Medical History Allergies/Adverse Reactions: Allergies Allergy/AdvReac Type Severity Reaction Status Date / Time No Known Allergies Allergy Verified 09/05/17 01:16 Home Medications: Ambulatory Orders NK [No Known Home Medication] 09/05/17 Review of Systems - Review of Systems Able to Perform ROS?: Yes Comments:: 09/05/17 01:44 GENERAL/CONSTITUTIONAL: No fever or chills. No weakness. HEAD, EYES, EARS, NOSE AND THROAT: No change in vision. No ear pain or discharge. No sore throat. CARDIOVASCULAR: No chest pain or shortness of breath. RESPIRATORY: No cough, wheezing, or hemoptysis. GASTROINTESTINAL: +Nausea. +Bloody emesis. +Stomach burning. No diarrhea or constipation. GENITOURINARY: No dysuria, frequency, or change in urination. MUSCULOSKELETAL: No joint or muscle swelling or pain. No neck or back pain. SKIN: No rash NEUROLOGIC: No headache, vertigo, loss of consciousness, or change in strength/ sensation. ENDOCRINE: No increased thirst. No abnormal weight change. HEMATOLOGIC/LYMPHATIC: No anemia, easy bleeding, or history of blood clots. ALLERGIC/IMMUNOLOGIC: No hives or skin allergy. All Other Systems: Reviewed and Negative <Jonathan Delgadillo - Last Filed: 09/05/17 03:06> *Physical Exam - Vital Signs Last Vital Signs Temp Pulse Resp BP Pulse Ox 97.6 F 98 H 20 96/62 98 09/05/17 01:16 09/05/17 01:16 09/05/17 01:16 09/05/17 01:16 09/05/17 01:16 - Physical Exam Comments: 09/05/17 03:06 GENERAL: +Mild discomfort. Awake, alert, and fully oriented. HEAD: No signs of trauma EYES: PERRLA, EOMI, sclera anicteric, conjunctiva clear ENT: Auricles normal inspection, hearing grossly normal, nares patent, oropharynx clear without exudates. Moist mucosa NECK: Normal ROM, supple, no lymphadenopathy, JVD, or masses LUNGS: Breath sounds equal, clear to auscultation bilaterally. No wheezes, and no crackles HEART: Regular rate and rhythm, normal S1 and S2, no murmurs, rubs or gallops ABDOMEN: Soft, nontender, normoactive bowel sounds. No guarding, no rebound. No masses EXTREMITIES: Normal range of motion, no edema. No clubbing or cyanosis. No cords, erythema, or tenderness NEUROLOGICAL: Cranial nerves II through XII grossly intact. Normal speech, normal gait SKIN: Warm, Dry, normal turgor, no rashes or lesions noted. <Jonathan Delgadillo - Last Filed: 09/05/17 03:06> - Vital Signs Last Vital Signs Temp Pulse Resp BP Pulse Ox 97.6 F 98 H 20 96/62 98 09/05/17 01:16 09/05/17 01:16 09/05/17 01:16 09/05/17 01:16 09/05/17 01:16 <Fouzia Gleason - Last Filed: 09/05/17 20:46> ED Treatment Course - LABORATORY CBC & Chemistry Diagram: 09/05/17 01:40 09/05/17 01:40 <Jonathan Delgadillo - Last Filed: 09/05/17 03:06> - LABORATORY CBC & Chemistry Diagram: 09/05/17 01:40 09/05/17 01:40 <Fouzia Gleason - Last Filed: 09/05/17 20:46> Medical Decision Making - Medical Decision Making 09/05/17 20:44 Pt comes with morning sickness. She reeks of pot and states that hse is surrounded by friends who smoke. We checked a UTOX, and she is positive for pot. I explained to her that regardless of whether she is smking it firsthand or 2ndhand, her fetus is getting the pot. Pt admised to quit smoking and to stay away from pot smokers. Hydrated in the ER and treated with antiemetics. She will be sent home Labs normal. Pt will follow with her [facility] <Fouzia Gleason - Last Filed: 09/05/17 20:46> *DC/Admit/Observation/Transfer - Attestations Scribe Attestion: 09/05/17 01:45 Documentation prepared by Jonathan Delgadillo, acting as medical practice assistant for Fouzia Gleason MD. <Jonathan Delgadillo - Last Filed: 09/05/17 03:06> - Discharge Dispostion Admit: No <Fouzia Gleason Filed: 09/05/17 20:46> Diagnosis at time of Disposition: Drug abuse, Morning sickness - Discharge Dispostion Disposition: HOME Condition at time of disposition: Stable - Referrals Referrals: Dutch Belle MD [Primary Care Provider] - - Patient Instructions Printed Discharge Instructions: Drug Withdrawal, DI for Morning Sickness - Post Discharge Activity
[2017-09-05] MEDS ORDERED: SODIUM CHLORIDE 0.9% 500 ML INFUS.BAG IV ONE (03:06)
[2017-09-05 03:20] LABS: COCAINE, UR NEGATIVE ng/ml (CUTOFF=300); METHADONE, UR NEGATIVE ng/ml (CUTOFF=300); OPIATES, URI NEGATIVE ng/ml (CUTOFF=300); PHENCYCLIDINE,URINE NEGATIVE ng/ml (CUTOFF=25); URINE AMPHETAMINES NEGATIVE ng/ml (CUTOFF=500); URINE BARBITURATES NEGATIVE ng/ml (CUTOFF=200); URINE BENZODIAZEPINES NEGATIVE ng/ml (CUTOFF=200)
[2017-09-05] MEDS ORDERED: ONDANSETRON 4 MG/2 ML VIAL ONE (03:23)
[2017-09-05] MEDS ORDERED: ONDANSETRON 4 MG/2 ML VIAL IVPUSH ONE (03:29)
[2017-09-05 03:47] LABS: BASO % 0.8 % (0-2.0); EOS % 2.7 % (0-4.5); HEMATOCRIT 37.9 % (32.4-45.2); HEMOGLOBIN 12.8 GM/dL (10.7-15.3); LYMPH % 22.3 % (8-40); MCH 27.7 pg (25.7-33.7); MCHC 33.7 g/dl (32.0-36.0); MEAN CELL VOLUME 82.2 fl (80-96); MEAN PLT VOLUME 8.9 fl (7.5-11.1); MONO % 6.9 % (3.8-10.2); NEUT % 67.3 % (42.8-82.8); PLATELET COUNT 346 K/MM3 (134-434); RBC 4.61 M/mm3 (3.60-5.2); RDW 14.8 % (11.6-15.6); WHITE BLOOD COUNT 8.6 K/mm3 (4.0-10.0)
[2017-09-05 04:49] LABS: ALBUMIN 3.8 g/dl (3.4-5.0); ALK PHOS 73 U/L (45-117); ANION GAP 11 (8-16); BLOOD UREA NITROGEN 11 mg/dL (7-18); CALCIUM 9.1 mg/dL (8.5-10.1); CHLORIDE 102 mmol/L (98-107); CO2 24 mmol/L (21-32); CREATININE 0.6 mg/dL (0.55-1.02); GLUCOSE,RANDOM 92 mg/dL (74-106); POTASSIUM 3.8 mmol/L (3.5-5.1); SGOT/AST 11 U/L (15-37); SGPT/ALT 13 U/L (12-78); SODIUM 137 mmol/L (136-145); TOT PROT 7.7 g/dl (6.4-8.2)
== END 2017-09-05 06:18 | disposition home or self-care (01) ==
LOC: JER 00:41
PROC: 3E033GC Introduction of Other Therapeutic Substance into Peripheral Vein, Percutaneous Approach (ICD-10-PCS; principal; 2017-09-05)
DX: O26.891 Other specified pregnancy related conditions, first trimester (principal); O21.0 Mild hyperemesis gravidarum; F12.10 Cannabis abuse, uncomplicated; Z3A.08 8 weeks gestation of pregnancy
CPT/HCPCS: 36415; 80053; 80307; 84702; 84703; 85025; 99282-25

== ENCOUNTER 2019-06-01 09:38 | Emergency (ER) | payer BC, OTHER ==
[2019-06-01 09:45] VITALS: BMI 18.6
[2019-06-01 10:58] LABS: EPI CELLS 7.6 /HPF (0-5/HPF); HYALINE CASTS 7 /lpf (0-8); URINE APPEARANCE CLEAR; URINE BACTERIA 31.1 /hpf (NEGATIVE); URINE BILIRUBIN NEGATIVE (NEGATIVE); URINE COLOR YELLOW; URINE GLUCOSE (UA) NEGATIVE (NEGATIVE); URINE KETONE TRACE (NEGATIVE); URINE LEUK ESTERASE NEGATIVE (NEGATIVE); URINE NITRITE NEGATIVE (NEGATIVE); URINE PROTEIN NEGATIVE (NEGATIVE); URINE UROBILINOGEN 0.2 mg/dL (0.2-1.0); URINE WBC 5 /hpf (0-5)
[2019-06-01 11:08] LABS: BASO % 1.5 % (0-2.0); EOS % 4.6 % (0-4.5); HEMATOCRIT 40.3 % (32.4-45.2); HEMOGLOBIN 13.2 GM/dL (10.7-15.3); LYMPH % 30.3 % (8-40); MCH 26.7 pg (25.7-33.7); MCHC 32.7 g/dl (32.0-36.0); MEAN CELL VOLUME 81.6 fl (80-96); MEAN PLT VOLUME 8.2 fl (7.5-11.1); MONO % 8.3 % (3.8-10.2); NEUT % 55.3 % (42.8-82.8); PLATELET COUNT 314 K/MM3 (134-434); RBC 4.94 M/mm3 (3.60-5.2); RDW 15.4 % (11.6-15.6); WHITE BLOOD COUNT 4.7 K/mm3 (4.0-10.0)
--- NOTE | 2019-06-01 11:14 | PDOC ---
History of Present Illness - General History Source: Patient Exam Limitations: Clinical Condition - History of Present Illness Initial Comments: 06/01/19 11:12 Patient with no significant past medical history presented with complaint of left lower pelvic and left-sided suprapubic pain since yesterday with no known etiology which has been persistent. Patient report 4 out of 10 left lower abdominal pain. Patient also reported a white vaginal discharge since yesterday. Patient reported have D&C done for termination of over 2 weeks ago in outside clinic. Denies nausea, vomiting, urinary frequency, burning with urination, vaginal bleeding. Denies contraceptive use. Patient did not take anything for symptoms Is this a multiple visit Asthma Patient?: No Timing/Duration: 24 hours <Kostas Galvan - Last Filed: 06/01/19 13:12> <Josh Cornelius - Last Filed: 06/03/19 09:27> - General Chief Complaint: Pain Stated Complaint: ABD. PAIN Time Seen by Provider: 06/01/19 10:16 Past History - Past Medical History Asthma: No Cancer: No Cardiac Disorders: No COPD: No Diabetes: No HTN: No Seizures: No Thyroid Disease: No - Surgical History Abdominal Surgery: No Appendectomy: No - Reproductive History Expected Date of Delivery: 05/26/13 (#): 4 Para: 2 Cervical CA: No Dysfunctional Uterine Bleeding: No Ectopic : Yes Endometrial CA: No Polycystic Ovaries: No Therapeutic (s) & number: No Tubal Ligation: No Spontaneous : 0 - Immunization History Td Vaccination: Yes Immunization Up to Date: Yes - Psycho Social/Smoking Cessation Hx Smoking Status: No Smoking History: Never smoked Years of Tobacco Use: 0 Have you smoked in the past 12 months: No Number of Cigarettes Smoked Daily: 0 Cigars Per Day: 0 Hx Alcohol Use: No Drug/Substance Use Hx: No Substance Use Type: None Hx Substance Use Treatment: No <Kostas Galvan - Last Filed: 06/01/19 13:12> <Josh Cornelius - Last Filed: 06/03/19 09:27> - Past Medical History Allergies/Adverse Reactions: Allergies Allergy/AdvReac Type Severity Reaction Status Date / Time No Known Allergies Allergy Verified 06/01/19 09:41 Home Medications: Ambulatory Orders Fluconazole [Diflucan] 150 mg PO ONCE #1 tablet 06/01/19 Ibuprofen [Motrin -] 600 mg PO QID PRN #20 tablet 06/01/19 Review of Systems - Review of Systems Able to Perform ROS?: Yes Is the patient limited Macedonian proficient: No Constitutional: No: Chills, Fever, Malaise HEENTM: No: Symptoms Reported, See HPI, Eye Pain, Blurred Vision, Tearing, Recent change in vision, Double Vision, Cataracts, Ear Pain, Ocular Prothesis, Ear Discharge, Nose Pain, Nose Congestion, Tinnitus, Nose Bleeding, Hearing Loss , Throat Pain, Throat Swelling, Mouth Pain, Dental Problems, Difficulty Swallowing, Mouth Swelling, Other Respiratory: No: Symptoms reported, See HPI, Cough, Orthopnea, Shortness of Breath, SOB with Exertion, SOB at Rest, Stridor, Wheezing, Productive cough, Hemoptysis, Other Cardiac (ROS): No: Symptoms Reported, See HPI, Chest Pain, Edema, Irregular Heart Rate, Lightheadedness, Palpitations, Syncope, Chest Tightness, Other ABD/GI: Yes: Symptoms Reported, See HPI, Abdominal cramping (left lower abdomen/ pelvic pain). No: Blood Streaked Bowels, Constipated, Diarrhea, Difficulty Swallowing, Nausea, Poor Appetite, Rectal Bleeding, Vomiting, Indigestion : Yes: Symptoms Reported, See HPI, Discharge (whit discharge), Pain (left pelvic pain). No: Burning, Dysuria, Frequency, Flank Pain, Hematuria, Incontinence, Urgency Musculoskeletal: No: Symptoms Reported, Back Pain All Other Systems: Reviewed and Negative <Kostas Galvan - Last Filed: 06/01/19 13:12> *Physical Exam - Vital Signs Last Vital Signs Temp Pulse Resp BP Pulse Ox 98.4 F 99 H 16 110/66 100 06/01/19 09:42 06/01/19 09:42 06/01/19 09:42 06/01/19 09:42 06/01/19 09:42 - Physical Exam General Appearance: Yes: Nourished, Appropriately Dressed. No: Apparent Distress HEENT: positive: Normal ENT Inspection Neck: positive: Supple Respiratory/Chest: positive: Lungs Clear, Normal Breath Sounds. negative: Respiratory Distress, Accessory Muscle Use Cardiovascular: positive: Regular Rhythm, Regular Rate Female Pelvic Exam: positive: normal external exam, cervical os closed, normal adnexa, discharge (small amount of white thick discharge in vaginal vault), other (mild tenderness to left pelvic region). negative: CMT, adnexal tenderness, vaginal bleeding Gastrointestinal/Abdominal: positive: Normal Bowel Sounds, Tender (mild tenderness to LLQ/pelvis region with mild tenderness to left suprapubic region) , Flat, Soft. negative: Organomegaly, Distended, Guarding, Rebound Musculoskeletal: positive: Normal Inspection. negative: CVA Tenderness Extremity: positive: Normal Capillary Refill, Normal Inspection, Normal Range of Motion Integumentary: positive: Normal Color Neurologic: positive: Fully Oriented, Alert, Normal Mood/Affect, Normal Response <Kostas Galvan - Last Filed: 06/01/19 13:12> - Vital Signs Last Vital Signs Temp Pulse Resp BP Pulse Ox 98.0 F 86 20 102/58 L 97 06/01/19 13:25 06/01/19 13:25 06/01/19 13:25 06/01/19 13:25 06/01/19 13:25 <Josh Cornelius - Last Filed: 06/03/19 09:27> ED Treatment Course - LABORATORY CBC & Chemistry Diagram: 06/01/19 10:55 06/01/19 10:55 - ADDITIONAL ORDERS Additional order review: Laboratory Results 06/01/19 10:30 Urine Color Yellow Urine Appearance Clear Urine pH 5.0 Ur Specific [place] 1.030 Urine Protein Negative Urine Glucose (UA) Negative Urine Ketones Trace H Urine Blood Trace Urine Nitrite Negative Urine Bilirubin Negative Urine Urobilinogen 0.2 Ur Leukocyte Esterase Negative Urine WBC (Auto) 5 Urine Casts (Auto) 7 U Epithel Cells (Auto) 7.6 Urine Bacteria (Auto) 31.1 - RADIOLOGY Radiology Studies Ordered: Category Date Time Status TRANSVAGINAL ULTRASOUND US [US] Stat Ultrasound 06/01/19 10:20 Ordered <Kostas Galvan - Last Filed: 06/01/19 13:12> - LABORATORY CBC & Chemistry Diagram: 06/01/19 10:55 06/01/19 10:55 - ADDITIONAL ORDERS Additional order review: 06/01/19 10:30 Gram Stain - Final Cervix 06/01/19 10:30 Urine Culture - Final Urine - Urine Clean Catch NO GROWTH OBTAINED 06/01/19 10:55 RBC 4.94 MCV 81.6 MCHC 32.7 RDW 15.4 D MPV 8.2 Neutrophils % 55.3 D Lymphocytes % 30.3 D Monocytes % 8.3 Eosinophils % 4.6 H Basophils % 1.5 <Josh Cornelius - Last Filed: 06/03/19 09:27> Medical Decision Making - Medical Decision Making 06/01/19 11:14 Patient with no significant past medical history presented with complaint of left lower pelvic and left-sided suprapubic pain since yesterday with no known etiology which has been persistent. Patient report 4 out of 10 left lower abdominal pain. Patient also reported a white vaginal discharge since yesterday. Patient reported have D&C done for termination of over 2 weeks ago in outside clinic. Denies nausea, vomiting, urinary frequency, burning with urination, vaginal bleeding. Denies contraceptive use. Patient did not take anything for symptoms Exam significant for small amount of thick white discharge in vaginal vault consistent with candidiasis. No visible lesion. Cervical as closed. No cervical motion tenderness. No blood in vaginal vault. Otherwise normal exam. Patient symptoms likely pelvic pain from prior D&C versus ovarian cyst versus STDs. CBC, CMP, transvaginal pelvic ultrasound, UA and urine culture ordered. Beta- hCG lab ordered. Urine gonorrhea and chlamydia tests ordered to treat based on lab and imaging results 06/01/19 13:05 CBC and chemistry lab unremarkable. Beta-hCG negative. UA shows no acute pathology. Pelvic ultrasound shows small ovarian cyst otherwise unremarkable exam. Patient symptoms likely caused by ovarian cyst. 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 I agree with the plan as outlined by CORNELIUS Galvan. <Josh Cornelius - Last Filed: 06/03/19 09:27> Discharge - Discharge Information Problems reviewed: Yes - Admission No <Kostas Galvan - Last Filed: 06/01/19 13:12> <Josh Cornelius - Last Filed: 06/03/19 09:27> - Discharge Information Clinical Impression/Diagnosis: Candidiasis, vagina, Pelvic pain Condition: Stable Disposition: HOME - Additional Discharge Information Prescriptions: Fluconazole [Diflucan] 150 mg PO ONCE #1 tablet Ibuprofen [Motrin -] 600 mg PO QID PRN #20 tablet PRN Reason: Pain - Follow up/Referral Referrals: Faby Belle MD [Primary Care Provider] - - Patient Discharge Instructions Patient Printed Discharge Instructions: DI for Vaginal Yeast Infection, DI for Ovarian Cyst Additional Instructions: Your blood work is normal. Your urine lab was normal as well. Your ultrasound shows small ovarian cyst which could be the cause of your pain. Take prescribed Motrin as needed for pain. Take prescribed medication for yeast infection. 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
[2019-06-01 11:16] LABS: URINE RBC 6.6 /hpf (0-4)
[2019-06-01 11:30] LABS: ALBUMIN 4.2 g/dl (3.4-5.0); BILIRUBIN,TOTAL 1.5 mg/dL (0.2-1); BLOOD UREA NITROGEN 12.6 mg/dL (7-18); CALCIUM 9.3 mg/dL (8.5-10.1); CREATININE 0.7 mg/dL (0.55-1.3); POTASSIUM 3.9 mmol/L (3.5-5.1); TOT PROT 7.8 g/dl (6.4-8.2)
[2019-06-01 13:38] VITALS: BP 102/58; PULSE 86; TEMP 98
== END 2019-06-01 13:35 | disposition home or self-care (01) ==
LOC: JER 09:38
DX: R10.2 Pelvic and perineal pain (principal); B37.3 Candidiasis of vulva and vagina
CPT/HCPCS: 36415; 76830-TC; 80053; 81003; 84702; 85025; 87070; 87086; 87205; 87491; 87591; 99282-25

== ENCOUNTER 2019-08-16 09:40 | Emergency (ER) | payer BC, OTHER ==
[2019-08-16 09:46] VITALS: BP 104/70; PULSE 78; TEMP 99; BMI 18.1
[2019-08-16] MEDS ORDERED: SODIUM CHLORIDE 1,000 ML IV STA (10:56)
[2019-08-16] MEDS ORDERED: FAMOTIDINE 20 MG/50 ML IVPB 20 MG/50 ML MG IVPB ONE ×2 (10:56→12:28)
[2019-08-16] MEDS ORDERED: ONDANSETRON 4 MG/2 ML VIAL IVPUSH ONE (10:58)
[2019-08-16] MEDS ORDERED: MAG HYDROX/AL HYDROX/SIMETH 30 ML UNIT-DOSE CUP PO ONE (10:58)
--- NOTE | 2019-08-16 11:13 | PDOC ---
History of Present Illness - General History Source: Patient Exam Limitations: No Limitations - History of Present Illness Initial Comments: 08/16/19 11:08 Patient is a 23-year-old female who presents to the ED with complaint of 4 days of "rib pain". She states the pain is the worst upon awakening in the morning. She states she has to sit up for the pain to resolve. She denies any fevers or chills. She denies any nausea or vomiting. She has not been taking anything for pain. She denies any past medical history or allergies to medications. She states the pain is on her anterior ribs and radiates down into her abdomen. She denies any recent long travel. <Maty Viera - Last Filed: 08/16/19 13:52> <Gem Dean - Last Filed: 08/16/19 13:58> - General Chief Complaint: Pain, Acute Stated Complaint: ABD PAIN/ LBP Time Seen by Provider: 08/16/19 10:50 Past History - Past Medical History Asthma: No Cancer: No Cardiac Disorders: No COPD: No Diabetes: No HTN: No Seizures: No Thyroid Disease: No - Surgical History Abdominal Surgery: No Appendectomy: No - Reproductive History Expected Date of Delivery: 05/26/13 (#): 4 Para: 2 Cervical CA: No Dysfunctional Uterine Bleeding: No Ectopic : Yes Endometrial CA: No Polycystic Ovaries: No Therapeutic (s) & number: No Tubal Ligation: No Spontaneous : 0 - Immunization History Td Vaccination: Yes Immunization Up to Date: Yes - Psycho Social/Smoking Cessation Hx Smoking Status: No Smoking History: Never smoked Years of Tobacco Use: 0 Have you smoked in the past 12 months: No Number of Cigarettes Smoked Daily: 0 Cigars Per Day: 0 Hx Alcohol Use: No Drug/Substance Use Hx: No Substance Use Type: None Hx Substance Use Treatment: No <Maty Viera - Last Filed: 08/16/19 13:52> <Gem Dean - Last Filed: 08/16/19 13:58> - Past Medical History Allergies/Adverse Reactions: Allergies Allergy/AdvReac Type Severity Reaction Status Date / Time No Known Allergies Allergy Verified 08/16/19 09:47 Home Medications: Ambulatory Orders Fluconazole [Diflucan] 150 mg PO ONCE #1 tablet 06/01/19 Ibuprofen [Motrin -] 600 mg PO QID PRN #20 tablet 06/01/19 Fluconazole 150 mg PO ONCE #1 tablet 06/05/19 Ibuprofen [Motrin -] 600 mg PO TID #30 tablet 06/05/19 Famotidine [Pepcid] 20 mg PO BID #14 tablet 08/16/19 Review of Systems - Review of Systems Comments:: 08/16/19 11:10 - Review of Systems Able to Perform ROS?: Yes Constitutional: No: Fever, Chills, Loss of Appetite, Night Sweats, Weakness HEENTM: No: Eye Pain, Vision changes, Ear Pain, Throat Pain, Throat Swelling, Mouth Pain, Difficulty Swallowing Respiratory: No: Cough, Shortness of Breath, Wheezing, Sputum Production Cardiac (ROS): No: Chest Pain, Chest Tightness, Palpitations, Irregular Heart Beat, Edema; positive chest wall pain ABD/GI: No: Nausea, Vomiting, Diarrhea; positive epigastric abdominal pain : No Dysuria, No Hematuria, No Frequency, No Urgency Musculoskeletal: No: Muscle Pain, Back Pain, Joint Pain, Muscle Weakness, Neck Pain Integumentary: No: Lesions, Rash Neurological: No: Headache, Numbness, Tingling, Weakness, Speech Difficulties <Maty Viera - Last Filed: 08/16/19 13:52> *Physical Exam - Vital Signs Last Vital Signs Temp Pulse Resp BP Pulse Ox 99.0 F 78 16 104/70 100 08/16/19 09:44 08/16/19 09:44 08/16/19 09:44 08/16/19 09:44 08/16/19 09:44 - Physical Exam 08/16/19 11:13 - Physical Exam General Appearance: Nourished, Appropriately Dressed, No Distress HEENT: EOMI, Normal Voice, No Muffled/Hoarse voice, No Nasal Congestion, No Rhinorrhea, Hearing Grossly Normal Neck: Supple, No Lymphadenopathy (R), No Lymphadenopathy (L), No Rigidity, No Decreased range of motion Respiratory/Chest: Lungs Clear, Normal Breath Sounds. No Respiratory Distress, No Accessory Muscle Use Cardiovascular: Regular Rhythm, Regular Rate, S1, S2 Gastrointestinal/Abdominal: Normal Bowel Sounds, Soft. No Guarding, No Rebound, No Rigidity; significant epigastric tenderness to palpation. No right upper quadrant tenderness to palpation. Negative Saucedo sign. No CVA tenderness bilaterally. Mild bilateral anterior chest wall tenderness inferiorly. No flail chest. Musculoskeletal: Normal Inspection. No Decreased Range of Motion Extremity: Normal Capillary Refill, Normal Inspection Integumentary: Normal Color, Dry. 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 NML intact, Fully Oriented, Alert, Normal Mood/Affect, Normal Response <Maty Viera D - Last Filed: 08/16/19 13:52> - Vital Signs Last Vital Signs Temp Pulse Resp BP Pulse Ox 99.0 F 78 16 104/70 100 08/16/19 09:44 08/16/19 09:44 08/16/19 09:44 08/16/19 09:44 08/16/19 09:44 <Gem Dean - Last Filed: 08/16/19 13:58> ED Treatment Course - LABORATORY CBC & Chemistry Diagram: 08/16/19 11:45 08/16/19 11:45 <Maty Viera - Last Filed: 08/16/19 13:52> - LABORATORY CBC & Chemistry Diagram: 08/16/19 11:45 08/16/19 11:45 - ADDITIONAL ORDERS Additional order review: Laboratory Results 08/16/19 08/16/19 08/16/19 11:45 11:45 11:45 Sodium Potassium Chloride Carbon Dioxide Anion Gap BUN Creatinine Est GFR (CKD-EPI)AfAm Est GFR (CKD-EPI)NonAf Random Glucose Calcium Total Bilirubin AST ALT Alkaline Phosphatase Total Protein Albumin Lipase 121 Urine Color Yellow Urine Appearance Clear Urine pH 5.5 Ur Specific [place] 1.020 Urine Protein Negative Urine Glucose (UA) Negative Urine Ketones Negative Urine Blood 1+ H Urine Nitrite Negative Urine Bilirubin Negative Urine Urobilinogen 0.2 Ur Leukocyte Esterase Negative Urine WBC (Auto) 1 Urine RBC (Auto) 4 Urine Casts (Auto) 1 U Epithel Cells (Auto) 1.9 Urine Bacteria (Auto) 12.9 Urine HCG, Qual Negative 08/16/19 11:45 Sodium 138 Potassium 4.1 Chloride 106 Carbon Dioxide 27 Anion Gap 5 L BUN 9.4 Creatinine 0.6 Est GFR (CKD-EPI)AfAm 147.86 Est GFR (CKD-EPI)NonAf 127.58 Random Glucose 96 Calcium 8.9 Total Bilirubin 0.4 AST 17 ALT 18 Alkaline Phosphatase 64 Total Protein 7.4 Albumin 3.8 Lipase Urine Color Urine Appearance Urine pH Ur Specific [place] Urine Protein Urine Glucose (UA) Urine Ketones Urine Blood Urine Nitrite Urine Bilirubin Urine Urobilinogen Ur Leukocyte Esterase Urine WBC (Auto) Urine RBC (Auto) Urine Casts (Auto) U Epithel Cells (Auto) Urine Bacteria (Auto) Urine HCG, Qual 08/16/19 11:45 RBC 4.63 MCV 83.6 MCHC 32.9 RDW 14.7 MPV 8.4 Neutrophils % 56.8 Lymphocytes % 29.7 Monocytes % 8.1 Eosinophils % 4.5 Basophils % 0.9 - Medications Given in the ED: ED Medications Discontinued Medications Generic Name Dose Route Start Last Admin Trade Name Freq PRN Reason Stop Dose Admin Al Hydroxide/Mg Hydroxide 30 ml 08/16/19 10:58 08/16/19 12:42 Mylanta Oral Suspension - PO 08/16/19 10:59 30 ml ONCE ONE Administration Famotidine/Sodium Chloride 20 mg in 50 mls @ 100 mls/hr 08/16/19 10:56 12:41 Pepcid 20 Mg Premixed Ivpb - IVPB 08/16/19 11:25 100 mls/hr ONCE ONE Administration Sodium Chloride 1,000 mls @ 1,000 mls/hr 08/16/19 10:56 08/16/19 12:15 Normal Saline - IV 08/16/19 11:55 1,000 mls/hr ASDIR STA Administration Ondansetron HCl 4 mg 08/16/19 10:58 08/16/19 12:25 Zofran Injection IVPUSH 08/16/19 10:59 4 mg ONCE ONE Administration <Gem Dean - Last Filed: 08/16/19 13:58> Medical Decision Making - Medical Decision Making 08/16/19 11:14 Assessment: Patient is a 23-year-old female with epigastric abdominal and chest wall pain for the last 4 days. Plan: -Saline lock and IV fluid -Pepcid IV -Zofran IV -Maalox p.o. -Labs ordered -Chest x-ray -Will reassess 08/16/19 13:52 The patient states that she is feeling much better after fluids and medications. Her chest x-ray was negative for acute pathology. We will send a prescription for Pepcid to her pharmacy and have her follow-up with her primary doctor within 1 to 2 days for repeat evaluation. She understands and agrees with treatment plan and she is stable for discharge. <MaximilianoMaty D - Last Filed: 08/16/19 13:52> - Medical Decision Making The patient was seen and evaluated in conjunction with midlevel provider under my direct supervision, ancillary studies were reviewed. I agree with the plan as outlined CORNELIUS Viera. HPI, workup/dispo as outlined. labs unremarkable. no infection on UA VS reviewed, wnl. anticipate discharge, pcp followup, return precautions 08/16/19 13:58 08/16/19 13:58 <Gem Dean - Last Filed: 08/16/19 13:58> Discharge - Discharge Information Problems reviewed: Yes <Maty Viera - Last Filed: 08/16/19 13:52> <Gem Dean - Last Filed: 08/16/19 13:58> - Discharge Information Clinical Impression/Diagnosis: Epigastric abdominal pain Condition: Stable Disposition: HOME - Additional Discharge Information Prescriptions: Famotidine [Pepcid] 20 mg PO BID #14 tablet - Follow up/Referral Referrals: Faby Belle MD [Primary Care Provider] - 3 days - Patient Discharge Instructions Patient Printed Discharge Instructions: DI for Gastritis Additional Instructions: Eat a bland diet and avoid spicy, acidic, greasy, fried, caffeinated foods. Drink plenty of fluids. Take the medications as prescribed to help settle your stomach. Follow up with your primary doctor within 2 days for repeat evaluation. - Post Discharge Activity Work/Back to School Note: Back to Work
[2019-08-16 12:09] LABS: BASO % 0.9 % (0-2.0); EOS % 4.5 % (0-4.5); HEMATOCRIT 38.7 % (32.4-45.2); HEMOGLOBIN 12.7 GM/dL (10.7-15.3); LYMPH % 29.7 % (8-40); MCH 27.5 pg (25.7-33.7); MCHC 32.9 g/dl (32.0-36.0); MEAN CELL VOLUME 83.6 fl (80-96); MEAN PLT VOLUME 8.4 fl (7.5-11.1); MONO % 8.1 % (3.8-10.2); NEUT % 56.8 % (42.8-82.8); PLATELET COUNT 290 K/MM3 (134-434); RBC 4.63 M/mm3 (3.60-5.2); RDW 14.7 % (11.6-15.6)
[2019-08-16 12:19] LABS: EPI CELLS 1.9 /HPF (0-5/HPF); HYALINE CASTS 1 /lpf (0-8); PH,URINE 5.5 (5.0-8.0); URINE APPEARANCE CLEAR; URINE BACTERIA 12.9 /hpf (NEGATIVE); URINE BILIRUBIN NEGATIVE (NEGATIVE); URINE COLOR YELLOW; URINE GLUCOSE (UA) NEGATIVE (NEGATIVE); URINE KETONE NEGATIVE (NEGATIVE); URINE LEUK ESTERASE NEGATIVE (NEGATIVE); URINE NITRITE NEGATIVE (NEGATIVE); URINE PROTEIN NEGATIVE (NEGATIVE); URINE RBC 4 /hpf (0-4); URINE UROBILINOGEN 0.2 mg/dL (0.2-1.0); URINE WBC 1 /hpf (0-5)
[2019-08-16] MEDS ORDERED: MAG HYDROX/AL HYDROX/SIMETH 30 ML UNIT-DOSE CUP ONE (12:27)
[2019-08-16] MEDS ORDERED: ONDANSETRON 4 MG/2 ML VIAL ONE (12:28)
[2019-08-16 12:39] LABS: ALBUMIN 3.8 g/dl (3.4-5.0); BILIRUBIN,TOTAL 0.4 mg/dL (0.2-1); BLOOD UREA NITROGEN 9.4 mg/dL (7-18); CALCIUM 8.9 mg/dL (8.5-10.1); CREATININE 0.6 mg/dL (0.55-1.3); POTASSIUM 4.1 mmol/L (3.5-5.1); TOT PROT 7.4 g/dl (6.4-8.2)
== END 2019-08-16 14:16 | disposition home or self-care (01) ==
LOC: JER 09:40
PROC: 3E033GC Introduction of Other Therapeutic Substance into Peripheral Vein, Percutaneous Approach (ICD-10-PCS; principal; 2019-08-16)
PROC: 3E0337Z Introduction of Electrolytic and Water Balance Substance into Peripheral Vein, Percutaneous Approach (ICD-10-PCS; 2019-08-16)
DX: R10.13 Epigastric pain (principal)
CPT/HCPCS: 36415; 71046-TC-FY; 80053; 81003; 83690; 84703; 85025; 87086; 99284-25; J7030

== ENCOUNTER 2019-08-26 22:12 | Emergency (ER) | payer BC, OTHER ==
[2019-08-26 22:22] VITALS: TEMP 98.8; BMI 18.6
[2019-08-26] MEDS ORDERED: KETOROLAC TROMETHAMINE 30 MG/1 ML VIAL IVPUSH ONE (22:42)
[2019-08-26] MEDS ORDERED: DEXAMETHASONE SOD PHOSPHATE 10 MG/1 ML VIAL IVPUSH ONE (22:42)
[2019-08-26] MEDS ORDERED: DEXAMETHASONE SOD PHOSPHATE 10 MG/1 ML VIAL ONE (23:01)
--- NOTE | 2019-08-26 23:07 | PDOC ---
History of Present Illness - General Chief Complaint: Sore Throat Stated Complaint: DIF/BREATHING/DIF/SWALLOWING Time Seen by Provider: 08/26/19 22:23 History Source: Patient Exam Limitations: No Limitations Past History - Past Medical History Allergies/Adverse Reactions: Allergies Allergy/AdvReac Type Severity Reaction Status Date / Time No Known Allergies Allergy Verified 08/26/19 22:22 Home Medications: Ambulatory Orders Fluconazole [Diflucan] 150 mg PO ONCE #1 tablet 06/01/19 Ibuprofen [Motrin -] 600 mg PO QID PRN #20 tablet 06/01/19 Fluconazole 150 mg PO ONCE #1 tablet 06/05/19 Ibuprofen [Motrin -] 600 mg PO TID #30 tablet 06/05/19 Famotidine [Pepcid] 20 mg PO BID #14 tablet 08/16/19 Clindamycin [Cleocin -] 450 mg PO Q8H #90 capsule 08/27/19 Asthma: No Cancer: No Cardiac Disorders: No COPD: No Diabetes: No HTN: No Seizures: No Thyroid Disease: No - Surgical History Abdominal Surgery: No Appendectomy: No - Reproductive History Expected Date of Delivery: 05/26/13 (#): 4 Para: 2 Cervical CA: No Dysfunctional Uterine Bleeding: No Ectopic : Yes Endometrial CA: No Polycystic Ovaries: No Therapeutic (s) & number: No Tubal Ligation: No Spontaneous : 0 - Immunization History Td Vaccination: Yes Immunization Up to Date: Yes - Psycho Social/Smoking Cessation Hx Smoking Status: No Smoking History: Never smoked Years of Tobacco Use: 0 Have you smoked in the past 12 months: No Number of Cigarettes Smoked Daily: 0 Cigars Per Day: 0 Information on smoking cessation initiated: No Hx Alcohol Use: No Drug/Substance Use Hx: No Substance Use Type: None Hx Substance Use Treatment: No *Physical Exam - Vital Signs Last Vital Signs Temp Pulse Resp BP Pulse Ox 98.8 F 129 H 26 H 125/68 100 08/26/19 22:19 08/26/19 22:19 08/26/19 22:19 08/26/19 22:19 08/26/19 22:19 - Physical Exam General Appearance: Yes: Mild Distress (due to pain) HEENT: positive: TMs Normal, Muffled/Hoarse voice, Other (+L soft palate swelling, uvula midline, no peritonsillar abscess noted, no exudates noted, + mild swelling along L side of neck). negative: Nasal Congestion, Rhinorrhea Respiratory/Chest: positive: Lungs Clear, Normal Breath Sounds. negative: Respiratory Distress Cardiovascular: positive: Tachycardia. negative: Murmur Gastrointestinal/Abdominal: positive: Normal Bowel Sounds, Soft. negative: Tender, Distended, Guarding, Rebound Neurologic: positive: Alert ED Treatment Course - LABORATORY CBC & Chemistry Diagram: 08/26/19 22:58 08/26/19 22:58 - RADIOLOGY Radiology Studies Ordered: Category Date Time Status SOFT TISSUE NECK CT WITH CONTR [CT] Stat CT Scan 08/26/19 22:44 Ordered Medical Decision Making - Medical Decision Making 23 y/o F with no sig pmh presents with throat pain x 2-3 days with pain and difficulty on swallowing. Also feels ear ringing sensation. States unable to bring up phlegm as feels it stuck in throat. +spitting. Denies fever, sob, cp, abd pain, n/v. Patient in no respiratory distress R/O throat abscess Plan: Labs, decadron, toradol, soft tissue CT neck 08/26/19 23:05 Repeat HR 103 Patient feeling better after meds given Soft tissue CT shows 0.6x0.7x0.7 cm abscess within the left tonsil D/W Dr. Gleason - recommends d/w ENT Pending to hear back from ENT at [facility] 08/27/19 00:12 As d/W ENT at [facility], Dr. Jef Cristobal, patient does not need transfer or to see oupatient ENT regarding this; states intratonsillar abscesses are not drained and usually self-resolve; mentions to given Clindamycin 600 mg IV for now and d/ c on clindamycin TID x 10 days stable for dc 08/27/19 00:40 Discharge - Discharge Information Problems reviewed: Yes Clinical Impression/Diagnosis: Tonsillar abscess Condition: Stable Disposition: HOME - Admission No - Additional Discharge Information Prescriptions: Clindamycin [Cleocin -] 450 mg PO Q8H #90 capsule Prescription Drug Monitoring Program (I-STOP) results: I-STOP not reviewed - Follow up/Referral - Patient Discharge Instructions Patient Printed Discharge Instructions: DI for Peritonsillar Abscess -- Adult Additional Instructions: Thank you for choosing [facility]. It was a pleasure taking care of you. Please take antibiotics as prescribed This antibiotic can cause diarrhea. If you have really severe diarrhea please stop the medication and consult a doctor. Follow-up with your regular doctor in 2 to 3 days. Return to the Emergency Department if your symptoms worsen or persist or have other concerning symptoms. - Post Discharge Activity
[2019-08-26 23:08] LABS: BASO % 0.5 % (0-2.0); EOS % 0.8 % (0-4.5); HEMATOCRIT 38.1 % (32.4-45.2); HEMOGLOBIN 12.6 GM/dL (10.7-15.3); LYMPH % 8.6 % (8-40); MCH 27.4 pg (25.7-33.7); MCHC 33.1 g/dl (32.0-36.0); MEAN CELL VOLUME 82.7 fl (80-96); MEAN PLT VOLUME 8.4 fl (7.5-11.1); NEUT % 82.1 % (42.8-82.8); PLATELET COUNT 364 K/MM3 (134-434)
[2019-08-26] MEDS ORDERED: KETOROLAC TROMETHAMINE 30 MG/1 ML VIAL ONE (23:13)
[2019-08-26 23:34] LABS: ALBUMIN 3.9 g/dl (3.4-5.0); BILIRUBIN,TOTAL 1.2 mg/dL (0.2-1); CALCIUM 8.6 mg/dL (8.5-10.1); CREATININE 0.7 mg/dL (0.55-1.3); POTASSIUM 3.4 mmol/L (3.5-5.1); TOT PROT 8.2 g/dl (6.4-8.2)
[2019-08-27 00:16] VITALS: PULSE 93
[2019-08-27] MEDS ORDERED: AMOX TR/POT CLAV 875MG/125MG TABLETS (FP) PO ONE (00:16)
[2019-08-27] MEDS ORDERED: CLINDAMYCIN 600MG PREMIX IVPB 600 MG/50 ML BAG IVPB ONE ×2 (00:26→00:30)
[2019-08-27 00:37] VITALS: BP 102/52
== END 2019-08-27 01:40 | disposition home or self-care (01) ==
LOC: JER 22:12
PROC: 3E03329 Introduction of Other Anti-infective into Peripheral Vein, Percutaneous Approach (ICD-10-PCS; principal; 2019-08-26)
PROC: 3E0333Z Introduction of Anti-inflammatory into Peripheral Vein, Percutaneous Approach (ICD-10-PCS; 2019-08-26)
PROC: 3E0333Z Introduction of Anti-inflammatory into Peripheral Vein, Percutaneous Approach (ICD-10-PCS; 2019-08-26)
DX: J36 Peritonsillar abscess (principal)
CPT/HCPCS: 36415; 70491-TC; 80053; 85025; 99285-25; J1100; Q9967

== ENCOUNTER 2020-04-09 09:26 | Emergency (ER) | payer BC, OTHER ==
[2020-04-09 09:32] VITALS: BP 108/71; PULSE 83; TEMP 98.7; BMI 18.4
--- OUTSIDE RECORDS SUMMARY | 2020-04-09 09:50 | XMS ---
:1995 Author Organization [facility] Support Name Relationship Address Phone YOON Unavailable [address] [place] [address] [address] [place] [address] EUGENIA HERNANDEZ MOTHER [address] [place] [address] Re-disclosure Warning The records that you are about to access may contain information from federally- assisted alcohol or drug abuse programs. If such information is present, then the following federally mandated warning applies: This information has been disclosed to you from records protected by federal confidentiality rules (42 CFR part 2). The federal rules prohibit you from making any further disclosure of this information unless further disclosure is expressly permitted by the written consent of the person to whom it pertains or as otherwise permitted by 42 CFR part 2. A general authorization for the release of medical or other information is NOT sufficient for this purpose. The Federal rules restrict any use of the information to criminally investigate or prosecute any alcohol or drug abuse patient.The records that you are about to access may contain highly sensitive health information, the redisclosure of which is protected by Article 27-F of the [facility] Public Health law. If you continue you may haveaccess to information: Regarding HIV / AIDS; Provided by facilities licensed or operated by the [facility] Office of Mental Health; or Provided by the [facility] Office for People With Developmental Disabilities. If such information is present, then the following [facility] mandated warning applies: This information has been disclosed to you from confidential records which are protected by state law. State law prohibits you from making any further disclosure of this information without the specific written consent of the person to whom it pertains, or as otherwise permitted by law. Any unauthorized further disclosure in violation of state law may result in a fine or chcf sentence or both. A general authorization for the release of medical or other information is NOT sufficient authorization for further disclosure. Insurance Providers Payer name Policy type Policy ID Covered Covered libertarian's Policy P brian / Coverage libertarian ID relationship to Hi Inf ormation type hi [employer] [id number] HEALTH CARE HMO/POS/EP O BC PPO [id number]
--- NOTE | 2020-04-09 10:28 | PDOC ---
History of Present Illness - General Chief Complaint: Nausea/Vomiting Stated Complaint: NAUSEA/VOMITING Time Seen by Provider: 04/09/20 10:22 History Source: Patient - History of Present Illness Timing/Duration: reports: constant Quality: reports: mild Past History - Medical History Allergies/Adverse Reactions: Allergies Allergy/AdvReac Type Severity Reaction Status Date / Time No Known Allergies Allergy Verified 04/09/20 09:28 Home Medications: Ambulatory Orders Fluconazole [Diflucan] 150 mg PO ONCE #1 tablet 06/01/19 Ibuprofen [Motrin -] 600 mg PO QID PRN #20 tablet 06/01/19 Fluconazole 150 mg PO ONCE #1 tablet 06/05/19 Ibuprofen [Motrin -] 600 mg PO TID #30 tablet 06/05/19 Famotidine [Pepcid] 20 mg PO BID #14 tablet 08/16/19 Clindamycin [Cleocin -] 450 mg PO Q8H #90 capsule 08/27/19 Nitrofurantoin Monohyd/M-Cryst [Macrobid -] 100 mg PO BID #14 capsule 04/09/20 Asthma: No Cancer: No Cardiac Disorders: No COPD: No Diabetes: No HTN: No Seizures: No Thyroid Disease: No - Surgical History Abdominal Surgery: No Appendectomy: No - Reproductive History Is Patient Now?: No Expected Date of Delivery: 05/26/13 (#): 4 Para: 2 Cervical CA: No Dysfunctional Uterine Bleeding: No Ectopic : Yes Endometrial CA: No Polycystic Ovaries: No Therapeutic (s) & number: No Tubal Ligation: No Spontaneous : 0 - Immunization History Td Vaccination: Yes Immunization Up to Date: Yes - Psycho-Social/Smoking History Smoking Status: No Smoking History: Never smoked Years of Tobacco Use: 0 Have you smoked in the past 12 months: No Number of Cigarettes Smoked Daily: 0 Cigars Per Day: 0 - Substance Abuse Hx (Audit-C & DAST Scrn) How often the patient has a drink containing alcohol: Never Score: In Men: 4 or > Positive; In Women: 3 or > Positive: 0 Screen Result (Pos requires Nsg. Audit-10AR): Negative In the last yr the pt used illegal drug/Rx for NonMed reason: No Score: Yes response is considered Positive: 0 Screen Result (Positive result requires Nsg. DAST-10): Negative Abd/GI Specific PMHX - Complaint Specific PMHX Colitis: No Diverticulitis: No Gall Bladder Disease: No GERD: No Hepatitis: No Irritable Bowel Synd (IBS): No Pancreatitis: No GI Ulcer Disease: No Review of Systems - Review of Systems Constitutional: No: Chills, Fever ABD/GI: Yes: Nausea, Vomiting, Abdominal cramping : No: Dysuria, Flank Pain *Physical Exam - Vital Signs Last Vital Signs Temp Pulse Resp BP Pulse Ox 98.7 F 83 16 108/71 100 04/09/20 09:28 04/09/20 09:28 04/09/20 09:28 04/09/20 09:28 04/09/20 09:28 - Physical Exam General Appearance: Yes: Appropriately Dressed. No: Apparent Distress HEENT: positive: Normal Voice Neck: positive: Supple Respiratory/Chest: negative: Respiratory Distress Gastrointestinal/Abdominal: positive: Soft. negative: Tender Musculoskeletal: negative: CVA Tenderness Integumentary: positive: Dry, Warm Neurologic: positive: Fully Oriented, Alert, Normal Mood/Affect Medical Decision Making - Medical Decision Making 04/09/20 10:26 24-year-old female , here with nausea vomiting and slight headache for 2 days. Also reports some vague lower abdominal cramping. States her last normal period was 02/23/2020 and has since taken 2 test but states the second line is "very faint". No vaginal bleeding at this time and no dysuria see exam N/V/abd cramps w/ ? +preg test at home -confirm preg -ua -US 04/09/20 10:54 Urine positive here with over 3000 bacteria and 2+ leuks on UA, urine culture sent. Will treat. Beta and ultrasound pending 04/09/20 12:12 Beta >1500 w/ no IUP seen on sono w/ ? hemorrhagic vs corpus luteal cyst on the L. Patient currently denies no pain and remains stable and well-appearing in ED. Had lengthy discussion with patient regarding findings. Patient understan ds the concern for possible ectopic and informed that she needs a reassessment in 48 hours and should return to the ED. Patient to return sooner if symptoms worsen as discussed Discharge - Discharge Information Problems reviewed: Yes Clinical Impression/Diagnosis: Abdominal pain affecting Condition: Improved Disposition: HOME - Additional Discharge Information Prescriptions: Nitrofurantoin Monohyd/M-Cryst [Macrobid -] 100 mg PO BID #14 capsule - Follow up/Referral - Patient Discharge Instructions Additional Instructions: Your ultrasound showed no evidence of today and your beta hCG was over 1500 The possibilities includes ectopic versus early and it is imperative that you return to the ER in 2 days for another reassessment If symptoms worsen prior to then, return immediately. You were started on antibiotics for a urinary tract infection. Take meds as directed - Post Discharge Activity
[2020-04-09 10:44] LABS: HCG,QUALITATIVE URINE Positive
[2020-04-09 10:47] LABS: EPI CELLS >36 /uL (0-25.1); HYALINE CASTS 10 /uL (0-3.1); URINE APPEARANCE CLOUDY; URINE BACTERIA 3444 /uL (0-1359); URINE BILIRUBIN NEGATIVE (NEGATIVE); URINE COLOR YELLOW; URINE GLUCOSE (UA) NEGATIVE (NEGATIVE); URINE KETONE TRACE (NEGATIVE); URINE LEUK ESTERASE 2+ (NEGATIVE); URINE NITRITE NEGATIVE (NEGATIVE); URINE PROTEIN NEGATIVE (NEGATIVE); URINE UROBILINOGEN 0.2 mg/dL (0.2-1.0); URINE WBC 141 /uL (0-25.8)
[2020-04-09 11:18] LABS: URINE RBC 28.1 /uL (0-23.9)
== END 2020-04-09 13:19 | disposition home or self-care (01) ==
LOC: JER 09:26
DX: O26.891 Other specified pregnancy related conditions, first trimester (principal)
CPT/HCPCS: 36415; 76817-TC; 81003; 84702; 84703; 87086; 99284-25

== ENCOUNTER 2020-06-07 09:23 | Emergency (ER) | payer BC, OTHER ==
[2020-06-07 09:32] VITALS: BMI 20.1
[2020-06-07] MEDS ORDERED: ACETAMINOPHEN 325 MG TABLET (FP) PO ONE (10:14)
[2020-06-07] MEDS ORDERED: ACETAMINOPHEN 325 MG TABLET (FP) ONE ×2 (10:55→11:00)
[2020-06-07 13:26] VITALS: PULSE 98; TEMP 98.2
[2020-06-07 14:06] LABS: EPI CELLS >36 /uL (0-25.1); HYALINE CASTS 3 /uL (0-3.1); URINE APPEARANCE CLOUDY; URINE BACTERIA 1977 /uL (0-1359); URINE BILIRUBIN NEGATIVE (NEGATIVE); URINE COLOR YELLOW; URINE GLUCOSE (UA) NEGATIVE (NEGATIVE); URINE KETONE 1+ (NEGATIVE); URINE LEUK ESTERASE TRACE (NEGATIVE); URINE NITRITE NEGATIVE (NEGATIVE); URINE PROTEIN NEGATIVE (NEGATIVE); URINE RBC 46 /uL (0-23.9); URINE WBC 38 /uL (0-25.8)
[2020-06-07 14:54] VITALS: BP 115/77
== END 2020-06-07 14:54 | disposition home or self-care (01) ==
LOC: JER 09:23
DX: R82.71 Bacteriuria (principal); R50.9 Fever, unspecified
CPT/HCPCS: 81003; 87086; 87804; 99283-25; C9803; U0003

== ENCOUNTER 2020-07-27 21:49 | Emergency (ER) | payer BC, OTHER ==
[2020-07-27 21:57] VITALS: BMI 19.7
[2020-07-27] MEDS ORDERED: LACTATED RINGERS SOLUTION 1000 ML INFUS.BAG IV ONE (22:02)
[2020-07-27] MEDS ORDERED: MAG HYDROX/AL HYDROX/SIMETH 30 ML UNIT-DOSE CUP PO ONE (22:25)
[2020-07-27] MEDS ORDERED: MAG HYDROX/AL HYDROX/SIMETH 30 ML UNIT-DOSE CUP ONE (22:31)
[2020-07-27 22:56] LABS: POTASSIUM 3.8 mmol/L (3.5-5.1)
[2020-07-27 22:57] LABS: CALCIUM 8.6 mg/dL (8.5-10.1)
[2020-07-27 22:58] LABS: BLOOD UREA NITROGEN 9.4 mg/dL (7-18)
[2020-07-27 23:01] LABS: CREATININE 0.4 mg/dL (0.55-1.3)
[2020-07-27 23:33] LABS: EPI CELLS >36 /uL (0-25.1); HYALINE CASTS 30 /uL (0-3.1); PH,URINE >= 9.0 (5.0-8.0); URINE APPEARANCE CLOUDY; URINE BACTERIA 4315 /uL (0-1359); URINE BILIRUBIN NEGATIVE (NEGATIVE); URINE COLOR YELLOW; URINE GLUCOSE (UA) NEGATIVE (NEGATIVE); URINE KETONE TRACE (NEGATIVE); URINE LEUK ESTERASE 2+ (NEGATIVE); URINE NITRITE NEGATIVE (NEGATIVE); URINE PROTEIN TRACE (NEGATIVE); URINE RBC 19 /uL (0-23.9); URINE WBC 416 /uL (0-25.8)
[2020-07-28] MEDS ORDERED: NITROFURANTOIN MACROCRYSTAL 50 MG CAPSULE (FP) ONE (00:03)
[2020-07-28 00:18] VITALS: BP 100/63; PULSE 85; TEMP 98.4
[2020-07-28] MEDS ORDERED: PYRIDOXINE HCL (B-6) 50 MG TABLET (FP) PO SCH (10:00)
[2020-07-28] MEDS ORDERED: NITROFURANTOIN MACROCRYSTAL 50 MG CAPSULE (FP) PO ONE (23:45)
== END 2020-07-28 00:21 | disposition home or self-care (01) ==
LOC: JER 21:49
DX: R10.30 Lower abdominal pain, unspecified (principal); R11.2 Nausea with vomiting, unspecified
CPT/HCPCS: 36415; 80048; 81003; 87077; 87086; 99284-25

== ENCOUNTER 2020-09-03 08:09 | Emergency (ER) | payer OTHER ==
[2020-09-03 08:18] VITALS: BMI 20.5
[2020-09-03 10:04] VITALS: TEMP 98.6
[2020-09-03 11:20] LABS: HEMATOCRIT 28.2 % (32.4-45.2); HEMOGLOBIN 9.2 GM/dL (10.7-15.3); MCH 26.2 pg (25.7-33.7); MCHC 32.8 g/dl (32.0-36.0); MEAN CELL VOLUME 79.9 fl (80-96); MEAN PLT VOLUME 8.6 fl (7.5-11.1); PLATELET COUNT 315 K/MM3 (134-434); RBC 3.53 M/mm3 (3.60-5.2); RDW 15.1 % (11.6-15.6); WHITE BLOOD COUNT 7.5 K/mm3 (4.0-10.0)
[2020-09-03 11:32] LABS: INR 0.98 (0.83-1.09); PROTHROMBIN TIME (PATIENT) 12.1 SEC (9.7-13.0)
[2020-09-03 11:35] LABS: ACTIVATED PTT 26.6 SECONDS (25.2-36.5)
[2020-09-03 11:52] LABS: ALBUMIN 2.4 g/dl (3.4-5.0); BLOOD UREA NITROGEN 8.1 mg/dL (7-18); CALCIUM 8.5 mg/dL (8.5-10.1)
[2020-09-03 11:54] LABS: EPI CELLS >36 /uL (0-25.1); HYALINE CASTS 10 /uL (0-3.1); URINE APPEARANCE CLOUDY; URINE BACTERIA 2412 /uL (0-1359); URINE BILIRUBIN NEGATIVE (NEGATIVE); URINE COLOR YELLOW; URINE GLUCOSE (UA) NEGATIVE (NEGATIVE); URINE KETONE NEGATIVE (NEGATIVE); URINE LEUK ESTERASE 2+ (NEGATIVE); URINE NITRITE NEGATIVE (NEGATIVE); URINE PROTEIN TRACE (NEGATIVE); URINE RBC 12 /uL (0-23.9); URINE WBC 202 /uL (0-25.8)
[2020-09-03 11:55] LABS: CREATININE 0.4 mg/dL (0.55-1.3)
[2020-09-03 11:56] LABS: BILIRUBIN,TOTAL 0.6 mg/dL (0.2-1); TOT PROT 6.3 g/dl (6.4-8.2)
[2020-09-03] MEDS ORDERED: CEPHALEXIN MONOHYDRATE 500 MG CAPSULE (UD) PO ONE (12:14)
[2020-09-03] MEDS ORDERED: CEPHALEXIN MONOHYDRATE 500 MG CAPSULE (UD) ONE (12:23)
[2020-09-03 12:28] VITALS: BP 106/65; PULSE 94
== END 2020-09-03 12:35 | disposition home or self-care (01) ==
LOC: JER 08:09
DX: M54.16 Radiculopathy, lumbar region (principal); I83.93 Asymptomatic varicose veins of bilateral lower extremities; Z3A.25 25 weeks gestation of pregnancy
CPT/HCPCS: 36415; 80053; 81003; 85027; 85610; 85730; 93005; 93010; 93971-TC; 99285-25

== ENCOUNTER 2020-11-20 08:20 | Day surgery (SDC) | payer OTHER ==
[2020-11-20] MEDS ORDERED: IRON SUCROSE INJECTION 100 MG in SODIUM CHLORIDE 100 ML IVPB ONE (14:30)
[2020-11-20 15:58] VITALS: BP 92/55; PULSE 80; TEMP 98
== END 2020-11-20 17:53 | disposition home or self-care (01) ==
LOC: JONCNONCHE 08:20 → JINFUSION 08:20 → J7W 14:29 → JINFUSION 17:53
PROVIDERS: ATTEND Specialist
PROC: 3E033GC Introduction of Other Therapeutic Substance into Peripheral Vein, Percutaneous Approach (ICD-10-PCS; principal; 2020-11-20)
DX: D50.9 Iron deficiency anemia, unspecified (principal)
CPT/HCPCS: 96365; J1756

== ENCOUNTER 2020-11-21 12:59 | Day surgery (SDC) | payer OTHER ==
[2020-11-21] MEDS ORDERED: IRON SUCROSE INJECTION 100 MG in SODIUM CHLORIDE 100 ML IVPB ONE (14:00)
[2020-11-21 14:32] VITALS: BP 89/62; PULSE 72; TEMP 97.7
== END 2020-11-21 14:32 | disposition home or self-care (01) ==
LOC: J7W 12:59 → JINFUSION 12:59
PROVIDERS: ATTEND Specialist
PROC: 3E033GC Introduction of Other Therapeutic Substance into Peripheral Vein, Percutaneous Approach (ICD-10-PCS; principal; 2020-11-21)
DX: D50.9 Iron deficiency anemia, unspecified (principal)
CPT/HCPCS: 96365; J1756

== ENCOUNTER 2020-11-26 05:25 | Inpatient (IN) | payer OTHER ==
[2020-11-26] MEDS: ELECTROLYTE-148 SOLN 1,000 ML IV SCH ×2 (05:45→09:45)
[2020-11-26] MEDS ORDERED: AMPICILLIN - 2 GM in SODIUM CHLORIDE 100 ML IVPB ONE ×2 (05:51→06:19)
[2020-11-26] MEDS ORDERED: AMPICILLIN SODIUM 2 GM VIAL ONE (06:06)
[2020-11-26 06:17] LABS: BASO % 0.7 % (0-2.0); EOS % 1.1 % (0-4.5); HEMATOCRIT 30.6 % (32.4-45.2); HEMOGLOBIN 9.5 GM/dL (10.7-15.3); LYMPH % 20.2 % (8-40); MCH 21.7 pg (25.7-33.7); MCHC 30.9 g/dl (32.0-36.0); MEAN CELL VOLUME 70.3 fl (80-96); MEAN PLT VOLUME 8.4 fl (7.5-11.1); MONO % 6.9 % (3.8-10.2); NEUT % 71.1 % (42.8-82.8); PLATELET COUNT 291 K/MM3 (134-434); RBC 4.36 M/mm3 (3.60-5.2); RDW 20.3 % (11.6-15.6)
[2020-11-26 06:31] VITALS: BMI 22.1
[2020-11-26 06:36] LABS: BLOOD UREA NITROGEN 5.8 mg/dL (7-18)
[2020-11-26 06:39] LABS: CREATININE 0.5 mg/dL (0.55-1.3)
[2020-11-26] MEDS ORDERED: OXYTOCIN 30 UNITS in 0.9% NS 30 UNIT/500 ML INFUS.BAG IVPB ONE (09:01)
[2020-11-26] MEDS ORDERED: PROMETHAZINE HCL 25 MG/1 ML VIAL IVPB ONE (09:13)
[2020-11-26] MEDS ORDERED: BUTORPHANOL TARTRATE 1 MG/ML VIAL IVPUSH ONE ×2 (09:13→19:43)
[2020-11-26] MEDS ORDERED: OXYTOCIN 30 UNITS in 0.9% NS 30 UNIT/500 ML INFUS.BAG IVPB SCH (09:15)
[2020-11-26 09:26] LABS: PROTHROMBIN TIME (PATIENT) 12.3 SEC (9.7-13.0)
[2020-11-26] MEDS ORDERED: AMPICILLIN SODIUM 1 GM VIAL ONE ×3 (10:07→18:52)
[2020-11-26 10:14] LABS: ANISOCYTOSIS 2+; MACROCYTOSIS 0; OVALOCYTE 1+; PLATELET ESTIMATE NORMAL
[2020-11-26] MEDS: AMPICILLIN - 1 GM in SODIUM CHLORIDE 100 ML IVPB SCH ×4 (10:15→22:47)
[2020-11-26] MEDS ORDERED: BUTORPHANOL TARTRATE 2 MG/ML VIAL ONE (11:31)
[2020-11-26] MEDS ORDERED: PROMETHAZINE HCL 25 MG/1 ML VIAL ONE ×2 (11:31→19:36)
[2020-11-26 13:11] LABS: URINE BARBITURATES NEGATIVE ng/ml (CUTOFF=200)
[2020-11-26 13:12] LABS: COCAINE, UR NEGATIVE ng/ml (CUTOFF=300); METHADONE, UR NEGATIVE ng/ml (CUTOFF=300); OPIATES, URI NEGATIVE ng/ml (CUTOFF=300); PHENCYCLIDINE,URINE NEGATIVE ng/ml (CUTOFF=25); URINE AMPHETAMINES NEGATIVE ng/ml (CUTOFF=500); URINE BENZODIAZEPINES NEGATIVE ng/ml (CUTOFF=200)
[2020-11-26] MEDS ORDERED: BUTORPHANOL TARTRATE 1 MG/ML VIAL ONE (19:36)
[2020-11-26] MEDS ORDERED: PROMETHAZINE HCL 25 MG/1 ML VIAL IVPUSH ONE (19:43)
[2020-11-26] MEDS ORDERED: OXYTOCIN 20 UNITS in 0.9% NS 20 UNIT/1,000 ML INFUS.BAG IV ONE (19:54)
[2020-11-26] MEDS ORDERED: METHYLERGONOVINE MALEATE 0.2 MG/1 ML AMP IM PRN (20:28)
[2020-11-26] MEDS ORDERED: ACETAMINOPHEN 325 MG TABLET (FP) PO PRN (20:28)
[2020-11-26] MEDS ORDERED: BENZOCAINE 20% 57 GM BOTTLE TP PRN (20:28)
[2020-11-26] MEDS ORDERED: BISACODYL 10 MG SUPP.RECT RC PRN (20:28)
[2020-11-26] MEDS ORDERED: WITCH HAZEL 50% (TUCKS) 40 PAD/JAR PAD TP PRN (20:28)
[2020-11-26] MEDS ORDERED: BENZOCAINE 28 GM HEMORRHOIDAL OINTMENT TP PRN (20:28)
[2020-11-26] MEDS ORDERED: OXYTOCIN 20 UNITS in 0.9% NS 20 UNIT/1,000 ML INFUS.BAG IV SCH (20:30)
[2020-11-26 21:48] LABS: CORD BASE EXCESS -3.7 mmol/L (0-2); CORD HCO3 22.5 mmHg (20-29); CORD PCO2 44.2 mmHg (30-78); CORD pH 7.324 (7.14-7.44)
[2020-11-26 21:49] LABS: CORD BASE EXCESS -2.4 mmol/L (0-2); CORD HCO3 23.3 mmHg (20-29); CORD PCO2 43.1 mmHg (30-78); CORD pH 7.35 (7.14-7.44)
[2020-11-26] MEDS: IBUPROFEN 600 MG TABLET (FP) PO PRN (22:50)
[2020-11-27 00:34] LABS: HIV INTERPRETATION NEGATIVE (NEGATIVE)
[2020-11-27] MEDS: AMPICILLIN - 1 GM in SODIUM CHLORIDE 100 ML IVPB SCH ×3 (02:13→23:57)
[2020-11-27 08:37] LABS: BASO % 0.6 % (0-2.0); EOS % 0.6 % (0-4.5); HEMATOCRIT 28.9 % (32.4-45.2); HEMOGLOBIN 8.8 GM/dL (10.7-15.3); LYMPH % 13.3 % (8-40); MCH 21.6 pg (25.7-33.7); MCHC 30.4 g/dl (32.0-36.0); MEAN CELL VOLUME 71.3 fl (80-96); MEAN PLT VOLUME 8.8 fl (7.5-11.1); MONO % 5.2 % (3.8-10.2); NEUT % 80.3 % (42.8-82.8); PLATELET COUNT 266 K/MM3 (134-434); RBC 4.05 M/mm3 (3.60-5.2); RDW 20.4 % (11.6-15.6); WHITE BLOOD COUNT 8.7 K/mm3 (4.0-10.0)
[2020-11-27] MEDS: FERROUS SO4 325 MG TABLET (FP) PO SCH ×2 (08:37→17:49)
[2020-11-27] MEDS: IBUPROFEN 600 MG TABLET (FP) PO PRN (08:37)
[2020-11-27] MEDS: PRENATAL VITAMINS W/ FOLIC ACID TABLET (FP) PO SCH (11:36)
[2020-11-27] MEDS ORDERED: SENNOSIDES/DOCUSATE COMBO (SENNA PLUS) TABLET (UD) PO PRN (22:00)
[2020-11-28] MEDS: IBUPROFEN 600 MG TABLET (FP) PO PRN (00:05)
[2020-11-28] MEDS: FERROUS SO4 325 MG TABLET (FP) PO SCH (08:49)
[2020-11-28] MEDS: PRENATAL VITAMINS W/ FOLIC ACID TABLET (FP) PO SCH (11:21)
[2020-11-28 13:34] VITALS: BP 101/65; PULSE 75; TEMP 98.7
== END 2020-11-28 12:50 | disposition home or self-care (01) | DRG 560 ==
LOC: JLDR 05:25 → J3W 22:40
PROVIDERS: ADMIT Obstetrics & Gynecology; ATTEND Obstetrics & Gynecology
PROC: 3E033VJ Introduction of Other Hormone into Peripheral Vein, Percutaneous Approach (ICD-10-PCS; principal; 2020-11-26)
PROC: 10907ZC Drainage of Amniotic Fluid, Therapeutic from Products of Conception, Via Natural or Artificial Opening (ICD-10-PCS; 2020-11-26)
PROC: 10E0XZZ Delivery of Products of Conception, External Approach (ICD-10-PCS; 2020-11-26)
DX: O99.03 Anemia complicating the puerperium (principal); D64.9 Anemia, unspecified; O99.824 Streptococcus B carrier state complicating childbirth; Z3A.37 37 weeks gestation of pregnancy; Z37.0 Single live birth; Z86.59 Personal history of other mental and behavioral disorders; Z86.19 Personal history of other infectious and parasitic diseases
CPT/HCPCS: 36415; 36600; 59409; 80048; 80307; 82803; 85025; 85610; 85730; 86780; 86850; 86900; 86901; 87389; C9803; U0003; U0005

== ENCOUNTER 2021-01-21 21:19 | Emergency (ER) | payer OTHER ==
[2021-01-21 21:38] VITALS: BP 99/63; PULSE 96; TEMP 98.5; BMI 19.0
== END 2021-01-21 22:34 | disposition home or self-care (01) ==
LOC: JERFT 21:19 → JER 21:19 → JERFT 22:34
DX: J06.9 Acute upper respiratory infection, unspecified (principal); Z11.52 Encounter for screening for COVID-19
CPT/HCPCS: 99283-25; C9803; U0003; U0005

== ENCOUNTER 2021-04-28 22:03 | Emergency (ER) | payer OTHER ==
[2021-04-28 22:09] VITALS: BP 112/78; PULSE 78; TEMP 98.3; BMI 18.8
[2021-04-28] MEDS ORDERED: ONDANSETRON 4 MG/2 ML VIAL IVPB ONE (23:04)
[2021-04-28] MEDS ORDERED: SODIUM CHLORIDE 1,000 ML IV STA (23:04)
[2021-04-28] MEDS ORDERED: FAMOTIDINE 20 MG/50 ML IVPB 20 MG/50 ML MG IVPB ONE ×2 (23:04→23:19)
[2021-04-28] MEDS ORDERED: ONDANSETRON 4 MG/2 ML VIAL ONE (23:19)
[2021-04-28 23:22] LABS: BASO % 1.1 % (0-2.0); EOS % 1.2 % (0-4.5); HCG,QUALITATIVE URINE Positive; HEMATOCRIT 34.1 % (32.4-45.2); HEMOGLOBIN 11.3 GM/dL (10.7-15.3); LYMPH % 19.4 % (8-40); MCH 26.8 pg (25.7-33.7); MCHC 33.3 g/dl (32.0-36.0); MEAN CELL VOLUME 80.7 fl (80-96); MEAN PLT VOLUME 7.8 fl (7.5-11.1); MONO % 8.5 % (3.8-10.2); NEUT % 69.8 % (42.8-82.8); PLATELET COUNT 376 10^3/uL (134-434); RBC 4.23 M/mm3 (3.60-5.2); WHITE BLOOD COUNT 5.9 K/mm3 (4.0-10.0)
[2021-04-28 23:25] LABS: EPI CELLS 34 /uL (0-25.1); HYALINE CASTS 7 /uL (0-3.1); PH,URINE 6.5 (5.0-8.0); URINE APPEARANCE CLEAR; URINE BACTERIA >9,000 /uL (0-1359); URINE BILIRUBIN NEGATIVE (NEGATIVE); URINE COLOR YELLOW; URINE GLUCOSE (UA) NEGATIVE (NEGATIVE); URINE KETONE TRACE (NEGATIVE); URINE LEUK ESTERASE 1+ (NEGATIVE); URINE NITRITE POSITIVE (NEGATIVE); URINE PROTEIN NEGATIVE (NEGATIVE); URINE RBC 12 /uL (0-23.9); URINE WBC 99 /uL (0-25.8)
[2021-04-28 23:45] LABS: BLOOD UREA NITROGEN 7.9 mg/dL (7-18)
[2021-04-28 23:46] LABS: ALBUMIN 3.5 g/dl (3.4-5.0)
[2021-04-28 23:48] LABS: CREATININE 0.7 mg/dL (0.55-1.3)
[2021-04-28 23:50] LABS: BILIRUBIN,TOTAL 0.6 mg/dL (0.2-1); TOT PROT 7.4 g/dl (6.4-8.2)
[2021-04-29] MEDS ORDERED: CEPHALEXIN MONOHYDRATE 500 MG CAPSULE (UD) PO ONE (00:46)
[2021-04-29] MEDS ORDERED: CEPHALEXIN MONOHYDRATE 500 MG CAPSULE (UD) ONE (00:57)
== END 2021-04-29 01:16 | disposition home or self-care (01) ==
LOC: JER 22:03
PROC: 3E033GC Introduction of Other Therapeutic Substance into Peripheral Vein, Percutaneous Approach (ICD-10-PCS; principal; 2021-04-28)
PROC: 3E033GC Introduction of Other Therapeutic Substance into Peripheral Vein, Percutaneous Approach (ICD-10-PCS; 2021-04-28)
PROC: 3E0337Z Introduction of Electrolytic and Water Balance Substance into Peripheral Vein, Percutaneous Approach (ICD-10-PCS; 2021-04-28)
DX: O21.8 Other vomiting complicating pregnancy (principal); O23.11 Infections of bladder in pregnancy, first trimester; Z3A.01 Less than 8 weeks gestation of pregnancy
CPT/HCPCS: 36415; 76817-TC; 80053; 81003; 83690; 84702; 84703; 85025; 93005; 93010; 99285-25

== ENCOUNTER 2021-06-17 11:11 | Emergency (ER) | payer OTHER ==
[2021-06-17 11:55] VITALS: BP 100/44; PULSE 100; TEMP 98.5; BMI 18.2
[2021-06-17] MEDS ORDERED: KETOROLAC TROMETHAMINE 15 MG/ML VIAL IM ONE (13:27)
[2021-06-17] MEDS ORDERED: METHOCARBAMOL 500 MG TABLET PO ONE (13:27)
[2021-06-17] MEDS ORDERED: KETOROLAC TROMETHAMINE 30 MG/1 ML VIAL ONE (13:29)
[2021-06-17] MEDS ORDERED: METHOCARBAMOL 500 MG TABLET ONE (13:29)
== END 2021-06-17 14:39 | disposition home or self-care (01) ==
LOC: JERFT 11:11
PROC: 3E023GC Introduction of Other Therapeutic Substance into Muscle, Percutaneous Approach (ICD-10-PCS; principal; 2021-06-17)
DX: M62.838 Other muscle spasm (principal)
CPT/HCPCS: 72125-TC; 99284-25

== ENCOUNTER 2021-08-15 08:31 | Emergency (ER) | payer OTHER ==
[2021-08-15 08:48] VITALS: BP 97/67; PULSE 76; TEMP 97.8; BMI 18.4
[2021-08-15] MEDS ORDERED: ACETAMINOPHEN 325 MG TABLET (FP) PO ONE (09:57)
[2021-08-15] MEDS ORDERED: KETOROLAC TROMETHAMINE 60 MG/2 ML VIAL IM ONE (09:57)
[2021-08-15] MEDS ORDERED: LIDOCAINE 5% TOPICAL PATCH TP ONE (09:57)
[2021-08-15] MEDS ORDERED: METHOCARBAMOL 500 MG TABLET PO ONE (09:57)
[2021-08-15] MEDS ORDERED: METHOCARBAMOL 500 MG TABLET ONE (10:18)
[2021-08-15] MEDS ORDERED: ACETAMINOPHEN 325 MG TABLET (FP) ONE (10:18)
[2021-08-15] MEDS ORDERED: LIDOCAINE 5% TOPICAL PATCH ONE (10:18)
[2021-08-15] MEDS ORDERED: KETOROLAC TROMETHAMINE 30 MG/1 ML VIAL ONE (10:19)
[2021-08-15] MEDS ORDERED: LIDOCAINE PATCH REMOVAL MC ONE (22:00)
== END 2021-08-15 12:38 | disposition home or self-care (01) ==
LOC: JERFT 08:31
PROC: 3E023GC Introduction of Other Therapeutic Substance into Muscle, Percutaneous Approach (ICD-10-PCS; principal; 2021-08-15)
DX: M54.50 Low back pain, unspecified (principal); M25.561 Pain in right knee; V49.50XA Passenger injured in collision with unspecified motor vehicles in traffic accident, initial encounter
CPT/HCPCS: 72100-TC-FY; 73502-TC-RT-FY; 73552-TC-RT-FY; 73562-TC-LT-FY; 73562-TC-RT-FY; 73590-TC-LT-FY; 73590-TC-RT-FY; 99284-25

== ENCOUNTER 2022-02-20 18:50 | Emergency (ER) | payer BC, OTHER ==
[2022-02-20 18:56] VITALS: BP 101/70; PULSE 86; RESP 18; TEMP 98.3; BMI 18.0
[2022-02-20] MEDS ORDERED: ACETAMINOPHEN 1000 MG/100 ML BAG IVPB ONE (20:18)
[2022-02-20 20:43] LABS: BASO % 0.8 % (0-2.0); EOS % 3.1 % (0-4.5); HEMATOCRIT 38.6 % (32.4-45.2); LYMPH % 22.9 % (8-40); MCH 27.7 pg (25.7-33.7); MCHC 33.6 g/dl (32.0-36.0); MEAN CELL VOLUME 82.4 fl (80-96); MEAN PLT VOLUME 7.9 fl (7.5-11.1); MONO % 8.7 % (3.8-10.2); NEUT % 64.5 % (42.8-82.8); PLATELET COUNT 345 10^3/uL (134-434); RBC 4.68 M/mm3 (3.60-5.2); RDW 15.1 % (11.6-15.6); WHITE BLOOD COUNT 6.9 K/mm3 (4.0-10.0)
[2022-02-20 21:03] LABS: EPI CELLS 29 /uL (0-25.1); HYALINE CASTS 2 /uL (0-3.1); PH,URINE 6.5 (5.0-8.0); URINE APPEARANCE CLOUDY; URINE BACTERIA >9,000 /uL (0-1359); URINE BILIRUBIN NEGATIVE (NEGATIVE); URINE COLOR YELLOW; URINE GLUCOSE (UA) NEGATIVE (NEGATIVE); URINE KETONE NEGATIVE (NEGATIVE); URINE LEUK ESTERASE TRACE (NEGATIVE); URINE NITRITE POSITIVE (NEGATIVE); URINE PROTEIN NEGATIVE (NEGATIVE); URINE RBC 15 /uL (0-23.9); URINE WBC 143 /uL (0-25.8)
[2022-02-20 21:08] LABS: CALCIUM 9.1 mg/dL (8.5-10.1)
[2022-02-20 21:09] LABS: ALBUMIN 3.8 g/dl (3.4-5.0); BLOOD UREA NITROGEN 8.1 mg/dL (7-18)
[2022-02-20 21:12] LABS: CREATININE 0.6 mg/dL (0.55-1.3)
[2022-02-20 21:14] LABS: BILIRUBIN,TOTAL 0.4 mg/dL (0.2-1); TOT PROT 7.4 g/dl (6.4-8.2)
[2022-02-20] MEDS ORDERED: ACETAMINOPHEN INJECTION 100 ML IVPB ONE (21:42)
== END 2022-02-21 00:26 | disposition home or self-care (01) ==
LOC: JER 18:50
PROC: 3E033GC Introduction of Other Therapeutic Substance into Peripheral Vein, Percutaneous Approach (ICD-10-PCS; principal; 2022-02-20)
DX: O26.899 Other specified pregnancy related conditions, unspecified trimester (principal); R10.31 Right lower quadrant pain; Z3A.00 Weeks of gestation of pregnancy not specified
CPT/HCPCS: 36415; 76817-TC; 80053; 81003; 84702; 85025; 86850; 86900; 86901; 87086; 87186; 99284-25

== ENCOUNTER 2022-02-24 00:21 | Emergency (ER) | payer OTHER ==
[2022-02-24 01:20] VITALS: BP 105/65; PULSE 98; RESP 19; TEMP 98.4; BMI 19.7
[2022-02-24] MEDS ORDERED: ACETAMINOPHEN 500 MG TABLET (FP) PO ONE (01:33)
[2022-02-24] MEDS ORDERED: ACETAMINOPHEN 500 MG TABLET (FP) ONE (01:47)
== END 2022-02-24 02:40 | disposition home or self-care (01) ==
LOC: JER 00:21
DX: S93.401A Sprain of unspecified ligament of right ankle, initial encounter (principal)
CPT/HCPCS: 73610-TC-RT-FY; 73630-TC-RT-FY; 99284-25

== ENCOUNTER 2022-03-08 12:44 | Emergency (ER) | payer BC, OTHER ==
[2022-03-08 12:57] VITALS: BP 95/61; PULSE 83; RESP 18; TEMP 97.4; BMI 18.6
[2022-03-08 13:59] LABS: EPI CELLS 29 /uL (0-25.1); HYALINE CASTS 2 /uL (0-3.1); PH,URINE 5.5 (5.0-8.0); URINE APPEARANCE CLEAR; URINE BACTERIA 672 /uL (0-1359); URINE BILIRUBIN NEGATIVE (NEGATIVE); URINE COLOR YELLOW; URINE GLUCOSE (UA) NEGATIVE (NEGATIVE); URINE KETONE NEGATIVE (NEGATIVE); URINE LEUK ESTERASE 2+ (NEGATIVE); URINE NITRITE NEGATIVE (NEGATIVE); URINE PROTEIN NEGATIVE (NEGATIVE); URINE RBC 30 /uL (0-23.9); URINE WBC 134 /uL (0-25.8)
[2022-03-08] MEDS ORDERED: ACETAMINOPHEN 1000 MG/100 ML BAG IVPB ONE (14:05)
[2022-03-08] MEDS ORDERED: SODIUM CHLORIDE 1,000 ML IV STA (14:05)
[2022-03-08] MEDS ORDERED: ONDANSETRON 4 MG/2 ML VIAL IVPUSH ONE (14:05)
[2022-03-08] MEDS ORDERED: ONDANSETRON 4 MG/2 ML VIAL ONE (14:10)
[2022-03-08] MEDS ORDERED: ACETAMINOPHEN INJECTION 100 ML IVPB ONE (14:22)
[2022-03-08 14:51] LABS: BASO % 0.6 % (0-2.0); EOS % 1.5 % (0-4.5); HEMATOCRIT 38.1 % (32.4-45.2); HEMOGLOBIN 12.8 GM/dL (10.7-15.3); LYMPH % 15.3 % (8-40); MCH 28.1 pg (25.7-33.7); MCHC 33.6 g/dl (32.0-36.0); MEAN CELL VOLUME 83.7 fl (80-96); MEAN PLT VOLUME 8.1 fl (7.5-11.1); MONO % 8.4 % (3.8-10.2); NEUT % 74.2 % (42.8-82.8); PLATELET COUNT 345 10^3/uL (134-434); RBC 4.55 M/mm3 (3.60-5.2); RDW 14.7 % (11.6-15.6); WHITE BLOOD COUNT 6.4 K/mm3 (4.0-10.0)
[2022-03-08 15:33] LABS: CALCIUM 9.5 mg/dL (8.5-10.1)
[2022-03-08 15:34] LABS: ALBUMIN 3.7 g/dl (3.4-5.0); BLOOD UREA NITROGEN 9.6 mg/dL (7-18)
[2022-03-08 15:37] LABS: CREATININE 0.5 mg/dL (0.55-1.3)
[2022-03-08 15:38] LABS: BILIRUBIN,TOTAL 0.7 mg/dL (0.2-1); TOT PROT 7.2 g/dl (6.4-8.2)
== END 2022-03-08 18:40 | disposition home or self-care (01) ==
LOC: JER 12:44 → JERFT 12:44
PROC: 3E033NZ Introduction of Analgesics, Hypnotics, Sedatives into Peripheral Vein, Percutaneous Approach (ICD-10-PCS; principal; 2022-03-08)
PROC: 3E033GC Introduction of Other Therapeutic Substance into Peripheral Vein, Percutaneous Approach (ICD-10-PCS; 2022-03-08)
PROC: 3E0337Z Introduction of Electrolytic and Water Balance Substance into Peripheral Vein, Percutaneous Approach (ICD-10-PCS; 2022-03-08)
DX: N71.1 Chronic inflammatory disease of uterus (principal); N39.0 Urinary tract infection, site not specified
CPT/HCPCS: 36415; 76700-TC; 76801-TC; 80053; 81003; 83690; 84702; 85025; 87086; 87186; 87491; 87591; 99284-25

== ENCOUNTER 2022-05-13 10:31 | Emergency (ER) | payer OTHER ==
[2022-05-13 10:38] VITALS: BP 117/75; PULSE 85; RESP 18; TEMP 98; BMI 21.0
[2022-05-13 11:51] LABS: EOS % 4.5 % (0-4.5); HEMOGLOBIN 11.2 GM/dL (10.7-15.3); LYMPH % 19.7 % (8-40); MEAN CELL VOLUME 82.2 fl (80-96); MEAN PLT VOLUME 8.4 fl (7.5-11.1); MONO % 6.3 % (3.8-10.2); NEUT % 68.5 % (42.8-82.8); PLATELET COUNT 292 10^3/uL (134-434); RBC 4.02 M/mm3 (3.60-5.2); RDW 14.5 % (11.6-15.6); WHITE BLOOD COUNT 6.7 K/mm3 (4.0-10.0)
[2022-05-13 12:24] LABS: CALCIUM 8.4 mg/dL (8.5-10.1)
[2022-05-13 12:25] LABS: BLOOD UREA NITROGEN 6.8 mg/dL (7-18)
[2022-05-13 12:28] LABS: CREATININE 0.5 mg/dL (0.55-1.3)
== END 2022-05-13 13:21 | disposition home or self-care (01) ==
LOC: JERFT 10:31 → JER 10:31 → JERFT 13:21
DX: O9A.212 Injury, poisoning and certain other consequences of external causes complicating pregnancy, second trimester (principal); S09.90XA Unspecified injury of head, initial encounter; S30.1XXA Contusion of abdominal wall, initial encounter; W10.9XXA Fall (on) (from) unspecified stairs and steps, initial encounter
CPT/HCPCS: 36415; 76815-TC; 80048; 84702; 85025; 86850; 86900; 86901; 99284-25

== ENCOUNTER 2022-09-29 02:25 | Inpatient (IN) | payer OTHER ==
[2022-09-29] MEDS ORDERED: DEXTROSE 5%-LACTATED RINGERS 1,000 ML IV SCH (03:45)
[2022-09-29] MEDS ORDERED: PROMETHAZINE HCL 25 MG/1 ML VIAL IVPB ONE (04:00)
[2022-09-29] MEDS ORDERED: BUTORPHANOL TARTRATE 1 MG/ML VIAL IVPB ONE (04:00)
[2022-09-29] MEDS ORDERED: BUTORPHANOL TARTRATE 1 MG/ML VIAL ONE (04:02)
[2022-09-29] MEDS ORDERED: PROMETHAZINE HCL 25 MG/1 ML VIAL ONE (04:03)
[2022-09-29] MEDS ORDERED: AMPICILLIN SODIUM 2 GM VIAL ONE (04:03)
[2022-09-29 04:31] LABS: BASO % 0.7 % (0-2.0); EOS % 0.8 % (0-4.5); HEMATOCRIT 26.3 % (32.4-45.2); HEMOGLOBIN 8.1 GM/dL (10.7-15.3); LYMPH % 18.8 % (8-40); MCH 20.1 pg (25.7-33.7); MCHC 30.6 g/dl (32.0-36.0); MEAN CELL VOLUME 65.5 fl (80-96); MEAN PLT VOLUME 8.5 fl (7.5-11.1); MONO % 7.7 % (3.8-10.2); PLATELET COUNT 315 10^3/uL (134-434); RBC 4.01 M/mm3 (3.60-5.2); RDW 19.8 % (11.6-15.6); WHITE BLOOD COUNT 7.8 K/mm3 (4.0-10.0)
[2022-09-29 04:39] LABS: INR 1.1 (0.83-1.09); PROTHROMBIN TIME (PATIENT) 12.8 SEC (9.7-13.0)
[2022-09-29 04:41] LABS: ACTIVATED PTT 29.1 SECONDS (25.2-36.5)
[2022-09-29 04:44] LABS: OPIATES, URI NEGATIVE (NEGATIVE); PHENCYCLIDINE,URINE NEGATIVE (NEGATIVE); URINE BARBITURATES NEGATIVE (NEGATIVE)
[2022-09-29 04:45] LABS: METHADONE, UR NEGATIVE (NEGATIVE); URINE BENZODIAZEPINES NEGATIVE (NEGATIVE)
[2022-09-29 04:50] VITALS: BMI 25.4
[2022-09-29] MEDS ORDERED: AMPICILLIN - 2 GM in SODIUM CHLORIDE 100 ML IVPB ONE (05:00)
[2022-09-29 05:25] LABS: COCAINE, UR NEGATIVE (NEGATIVE); URINE AMPHETAMINES NEGATIVE (NEGATIVE)
[2022-09-29 05:33] LABS: CALCIUM 8.4 mg/dL (8.5-10.1)
[2022-09-29 05:34] LABS: ALBUMIN 2.2 g/dl (3.4-5.0)
[2022-09-29 05:37] LABS: CREATININE 0.4 mg/dL (0.55-1.3)
[2022-09-29 05:42] LABS: TOT PROT 6.3 g/dl (6.4-8.2)
[2022-09-29 06:06] LABS: BILIRUBIN,TOTAL 0.9 mg/dL (0.2-1)
[2022-09-29 06:33] LABS: ANISOCYTOSIS 3+; MACROCYTOSIS 0; OVALOCYTE 1+; TARGET CELLS 1+
[2022-09-29] MEDS ORDERED: FENTANYL/BUPIVACAINE/NS/PF - PCEA - 50 ML DISP.SYRIN EP ONE (07:49)
[2022-09-29] MEDS ORDERED: AMPICILLIN SODIUM 1 GM VIAL ONE (09:24)
[2022-09-29] MEDS: AMPICILLIN - 1 GM in SODIUM CHLORIDE 100 ML IVPB SCH ×4 (09:30→20:51)
[2022-09-29] MEDS ORDERED: OXYTOCIN 20 UNITS in 0.9% NS 20 UNIT/1,000 ML INFUS.BAG IV ONE (09:57)
[2022-09-29] MEDS ORDERED: LIDOCAINE HCL 1% PRESERVATIVE FREE - 30ML VIAL ONE (10:00)
[2022-09-29] MEDS ORDERED: BUPIVACAINE HCL/PF 0.25% (2.5MG/ML) 10 ML VIAL ONE (10:12)
[2022-09-29] MEDS ORDERED: LIDO 2%/EPI 1:200000 PRESRVFRE (20 ML SDVIAL) ONE (10:12)
[2022-09-29] MEDS ORDERED: FENTANYL/BUPIVACAINE/NS/PF - PCEA - 50 ML DISP.SYRIN EP SCH ×2 (10:30→11:00)
[2022-09-29] MEDS ORDERED: NALOXONE HCL 0.4 MG/ML VIAL IVPUSH PRN ×2 (10:48→15:12)
[2022-09-29] MEDS ORDERED: MISOPROSTOL 200 MCG TABLET ONE (13:34)
[2022-09-29] MEDS ORDERED: BISACODYL 10 MG SUPP.RECT RC PRN (13:57)
[2022-09-29] MEDS ORDERED: BENZOCAINE 20% 57 GM BOTTLE TP PRN (13:57)
[2022-09-29] MEDS ORDERED: BENZOCAINE 28 GM HEMORRHOIDAL OINTMENT TP PRN (13:57)
[2022-09-29] MEDS ORDERED: IBUPROFEN 600 MG TABLET (FP) PO PRN (13:57)
[2022-09-29] MEDS ORDERED: WITCH HAZEL 50% (TUCKS) 40 PAD/JAR PAD TP PRN (13:57)
[2022-09-29] MEDS ORDERED: MISOPROSTOL 100 MCG TABLET PV ONE (13:58)
[2022-09-29] MEDS ORDERED: OXYTOCIN 20 UNITS in 0.9% NS 20 UNIT/1,000 ML INFUS.BAG IV SCH (14:00)
[2022-09-29] MEDS: ACETAMINOPHEN 325 MG TABLET (FP) PO PRN (17:09)
[2022-09-29] MEDS ORDERED: ACETAMINOPHEN 325 MG TABLET (FP) PO ONE (19:00)
[2022-09-30] MEDS: AMPICILLIN - 1 GM in SODIUM CHLORIDE 100 ML IVPB SCH (01:04)
[2022-09-30 09:10] LABS: BASO % 0.6 % (0-2.0); EOS % 0.9 % (0-4.5); HEMOGLOBIN 7.6 GM/dL (10.7-15.3); MCH 20.4 pg (25.7-33.7); MCHC 31.5 g/dl (32.0-36.0); MEAN CELL VOLUME 64.8 fl (80-96); MEAN PLT VOLUME 8.1 fl (7.5-11.1); MONO % 7.4 % (3.8-10.2); NEUT % 71.1 % (42.8-82.8); PLATELET COUNT 273 10^3/uL (134-434); RBC 3.71 M/mm3 (3.60-5.2); RDW 19.5 % (11.6-15.6); WHITE BLOOD COUNT 9.5 K/mm3 (4.0-10.0)
[2022-09-30] MEDS: ACETAMINOPHEN 325 MG TABLET (FP) PO PRN ×3 (10:30→21:17)
[2022-09-30] MEDS: FERROUS SO4 325 MG TABLET (FP) PO SCH (10:33)
[2022-09-30] MEDS ORDERED: SENNOSIDES/DOCUSATE COMBO (SENNA PLUS) TABLET (UD) PO PRN (22:00)
[2022-09-30 23:03] VITALS: RESP 18
[2022-10-01] MEDS: ACETAMINOPHEN 325 MG TABLET (FP) PO PRN ×2 (02:30→09:09)
[2022-10-01 07:12] LABS: BASO % 1.2 % (0-2.0); EOS % 3.1 % (0-4.5); HEMATOCRIT 23.6 % (32.4-45.2); HEMOGLOBIN 7.3 GM/dL (10.7-15.3); LYMPH % 39.6 % (8-40); MCH 20.1 pg (25.7-33.7); MCHC 30.9 g/dl (32.0-36.0); MEAN CELL VOLUME 65.2 fl (80-96); MEAN PLT VOLUME 8.4 fl (7.5-11.1); MONO % 6.3 % (3.8-10.2); NEUT % 49.8 % (42.8-82.8); PLATELET COUNT 278 10^3/uL (134-434); RBC 3.61 M/mm3 (3.60-5.2); RDW 19.4 % (11.6-15.6); WHITE BLOOD COUNT 6.5 K/mm3 (4.0-10.0)
[2022-10-01] MEDS: FERROUS SO4 325 MG TABLET (FP) PO SCH (09:09)
[2022-10-01 09:26] VITALS: BP 114/74; PULSE 65; TEMP 99.2
== END 2022-10-01 13:20 | disposition home or self-care (01) | DRG 560 ==
LOC: JDEL 02:25 → JLDR 03:30 → J3W 16:22
PROVIDERS: ADMIT Student in an Organized Health Care Education/Training Program; ATTEND Student in an Organized Health Care Education/Training Program
PROC: 10E0XZZ Delivery of Products of Conception, External Approach (ICD-10-PCS; principal; 2022-09-29)
DX: O80 Encounter for full-term uncomplicated delivery (principal); Z3A.38 38 weeks gestation of pregnancy; Z37.0 Single live birth
CPT/HCPCS: 36415; 59025; 80053; 80307; 85025; 85610; 85730; 86780; 86850; 86900; 86901; C9803-CS; U0003; U0005

== ENCOUNTER 2023-01-04 14:35 | Emergency (ER) | payer OTHER ==
[2023-01-04 14:52] VITALS: BP 130/92; PULSE 74; RESP 18; TEMP 98; BMI 20.8
[2023-01-04] MEDS ORDERED: KETOROLAC TROMETHAMINE 30 MG/1 ML VIAL IM ONE (16:37)
[2023-01-04] MEDS ORDERED: LORazepam 2 MG/ML SDV VIAL IM ONE (16:45)
[2023-01-04] MEDS ORDERED: KETOROLAC TROMETHAMINE 30 MG/1 ML VIAL ONE (16:46)
== END 2023-01-04 18:24 | disposition home or self-care (01) ==
LOC: JERFT 14:35
PROC: 3E0233Z Introduction of Anti-inflammatory into Muscle, Percutaneous Approach (ICD-10-PCS; principal; 2023-01-04)
PROC: 3E023GC Introduction of Other Therapeutic Substance into Muscle, Percutaneous Approach (ICD-10-PCS; 2023-01-04)
DX: M79.601 Pain in right arm (principal); S63.502A Unspecified sprain of left wrist, initial encounter; S56.912A Strain of unspecified muscles, fascia and tendons at forearm level, left arm, initial encounter; W18.30XA Fall on same level, unspecified, initial encounter
CPT/HCPCS: 73070-TC-RT-FY; 73110-TC-RT-FY; 99284-25

== ENCOUNTER 2024-04-03 00:18 | Emergency (ER) | payer OTHER ==
[2024-04-03 00:27] VITALS: BP 104/73; PULSE 99; RESP 18; TEMP 98.4; BMI 19.7
[2024-04-03] MEDS ORDERED: ALBUTEROL SO4 HFA INHALER IH ONE (00:45)
[2024-04-03] MEDS ORDERED: IBUPROFEN 400 MG TABLET (FP) PO ONE (00:45)
[2024-04-03] MEDS: ALBUTEROL SO4 HFA INHALER IH ONE (00:47)
[2024-04-03] MEDS: IBUPROFEN 400 MG TABLET (FP) PO ONE (00:47)
[2024-04-03] MEDS: BENZONATATE 200 MG CAPSULE PO ONE (00:55)
[2024-04-03 01:07] LABS: THROAT:GRP A STREP NOT DETECTED (NOTDETECTED)
== END 2024-04-03 01:18 | disposition home or self-care (01) ==
LOC: JER 00:18
DX: R05.9 Cough, unspecified (principal); B34.9 Viral infection, unspecified; Z20.822 Contact with and (suspected) exposure to COVID-19
CPT/HCPCS: 0241U-QW; 87651; 99283-25

== ENCOUNTER 2024-10-28 00:11 | Emergency (ER) | payer OTHER ==
[2024-10-28 00:20] VITALS: BP 109/62; PULSE 100; RESP 18; TEMP 98; BMI 20.2
[2024-10-28] MEDS ORDERED: METHOCARBAMOL 500 MG TABLET PO ONE (01:02)
[2024-10-28] MEDS ORDERED: METHOCARBAMOL 500 MG TABLET ONE (01:05)
[2024-10-28] MEDS ORDERED: KETOROLAC TROMETHAMINE 30 MG/1 ML VIAL ONE (01:06)
[2024-10-28] MEDS ORDERED: LIDOCAINE 4% PATCH TP ONE (01:06)
[2024-10-28] MEDS: KETOROLAC TROMETHAMINE 30 MG/1 ML VIAL IM ONE (01:11)
[2024-10-28] MEDS: METHOCARBAMOL 500 MG TABLET PO ONE (01:11)
[2024-10-28] MEDS: LIDOCAINE 4% PATCH TP ONE (01:11)
[2024-10-28] MEDS ORDERED: LIDOCAINE PATCH REMOVAL MC SCH (22:00)
== END 2024-10-28 01:28 | disposition home or self-care (01) ==
LOC: JER 00:11
PROC: 3E0233Z Introduction of Anti-inflammatory into Muscle, Percutaneous Approach (ICD-10-PCS; principal; 2024-10-28)
DX: M54.2 Cervicalgia (principal); R51.9 Headache, unspecified; V43.52XA Car driver injured in collision with other type car in traffic accident, initial encounter; Y92.410 Unspecified street and highway as the place of occurrence of the external cause
CPT/HCPCS: 99284-25

== ENCOUNTER 2024-11-12 22:07 | Emergency (ER) | payer OTHER ==
[2024-11-12 22:12] VITALS: BMI 21.9
[2024-11-12 23:18] LABS: HCG,QUALITATIVE URINE Positive
[2024-11-12 23:19] LABS: URINE APPEARANCE CLEAR; URINE BILIRUBIN NEGATIVE (NEGATIVE); URINE COLOR YELLOW; URINE GLUCOSE (UA) NEGATIVE (NEGATIVE); URINE KETONE TRACE (NEGATIVE); URINE LEUK ESTERASE NEGATIVE (NEGATIVE); URINE NITRITE NEGATIVE (NEGATIVE); URINE PROTEIN NEGATIVE (NEGATIVE)
[2024-11-13 00:12] LABS: ABSOLUTE IMMATURE GRANULOCYTES 0.02 x10^3/uL (0.0-0.031); BASOPHILS # 0.06 x10^3/uL (0.01-0.08); EOSINOPHIL % 4.2 % (0.7-5.8); EOSINOPHILS # 0.31 x10^3/uL (0.04-0.36); HEMATOCRIT 39.7 % (34.1-44.9); HEMOGLOBIN 12.7 g/dL (11.2-15.7); MEAN CELL VOLUME 85.4 fl (79.4-94.8); MEAN PLT VOLUME 10.1 fl (9.4-12.3); MONOCYTE % 6.8 % (4.7-12.5); PLATELET COUNT 368 x10^3/uL (182-369); RDW 12.8 % (12.1-16.5)
[2024-11-13] MEDS ORDERED: ONDANSETRON 4 MG/2 ML VIAL ONE (00:20)
[2024-11-13] MEDS ORDERED: FAMOTIDINE 20 MG/50 ML IVPB 20 MG/50 ML MG IVPB ONE (00:21)
[2024-11-13 00:28] LABS: POTASSIUM 3.7 mmol/L (3.5-5.1)
[2024-11-13 00:30] LABS: ALBUMIN 3.6 g/dl (3.4-5.0); CALCIUM 9.4 mg/dL (8.5-10.1)
[2024-11-13 00:33] LABS: CREATININE 0.5 mg/dL (0.55-1.3)
[2024-11-13 00:35] LABS: BILIRUBIN,TOTAL 1.3 mg/dL (0.2-1); TOT PROT 7.2 g/dl (6.4-8.2)
[2024-11-13] MEDS: SODIUM CHLORIDE 1,000 ML IV STA (00:38)
[2024-11-13] MEDS: ONDANSETRON 4 MG/2 ML VIAL IVPUSH ONE (00:39)
[2024-11-13] MEDS: FAMOTIDINE 20 MG/50 ML IVPB 20 MG/50 ML MG IVPB ONE (00:39)
[2024-11-13 01:36] LABS: HCV DIAGNOSTIC IN-HOUSE W/RFLX NON-REACTIVE (NONREACTIVE); HIV INTERPRETATION NEGATIVE (NEGATIVE)
[2024-11-13 02:43] VITALS: BP 90/60; PULSE 96; RESP 16; TEMP 98.4
== END 2024-11-13 02:47 | disposition home or self-care (01) ==
LOC: JER 22:07
PROC: 3E033GC Introduction of Other Therapeutic Substance into Peripheral Vein, Percutaneous Approach (ICD-10-PCS; principal; 2024-11-12)
PROC: 3E033GC Introduction of Other Therapeutic Substance into Peripheral Vein, Percutaneous Approach (ICD-10-PCS; 2024-11-12)
DX: O21.9 Vomiting of pregnancy, unspecified (principal); O26.891 Other specified pregnancy related conditions, first trimester; R10.30 Lower abdominal pain, unspecified; R35.0 Frequency of micturition; Z3A.01 Less than 8 weeks gestation of pregnancy
CPT/HCPCS: 36415; 76817-TC; 80053; 81003; 83690; 84702; 84703; 85025; 86803; 87086; 87389; 99285-25